=== PATIENT | female | born 1955 | race Caucasian/White ===

== ENCOUNTER 2017-12-22 17:00 | Inpatient (IN) | payer OTHER ==
[2017-12-22] MEDS: SOD CHLORIDE 0.9% 1,000 ML IV (17:30)
[2017-12-22] MEDS: ONDANSETRON 4 MG INJ IV ×2 (17:31→20:08)
[2017-12-22] MEDS: morphine 4 MG/ML VIAL IV ×2 (17:31→20:09)
[2017-12-22 17:37] LABS: ADD MAN DIFF? NO
[2017-12-22 17:38] LABS: BASOPHILS % 0.3 % (0.0-2.0); EOSINOPHILS # 0.1 10^3/ul (0.0-0.5); HEMATOCRIT 31.2 % (37.0-47.0); HEMOGLOBIN 10.7 g/dl (12.0-16.0); LYMPHOCYTES # 1.5 10^3/ul (0.8-2.9); LYMPHOCYTES % 25.5 % (15.0-51.0); MEAN CORPUSCULAR HGB CONC 34.3 g/dl (32.0-37.0); MEAN CORPUSCULAR VOLUME 90.4 fl (82.0-101.0); MEAN PLATELET VOLUME 10.8 fl (7.4-10.4); MONOCYTE # 0.4 10^3/ul (0.3-0.9); MONOCYTES % 6.6 % (0.0-11.0); NEUTROPHIL # 3.8 10^3/ul (1.6-7.5); NEUTROPHILS % 66.4 % (39.0-77.0); PLATELET COUNT 216 10^3/UL (140-415); RED BLOOD COUNT 3.45 10^6/ul (4.20-5.40); RED CELL DISTRIBUTION WIDTH 13.7 % (11.5-14.5)
[2017-12-22 17:38] LABS: WHITE BLOOD COUNT 5.7 10^3/ul (4.8-10.8)
[2017-12-22 17:46] LABS: ADD UMIC YES; UR ASCORBIC ACID NEGATIVE (NEGATIVE); UR BILIRUBIN (Dip) NEGATIVE (NEGATIVE); UR BLOOD (Dip) 2+ mg/dL (NEGATIVE); UR CLARITY CLEAR (CLEAR); UR COLOR YELLOW (YELLOW); UR GLUCOSE (Dip) NEGATIVE (NEGATIVE); UR KETONES (Dip) 1+ mg/dL (NEGATIVE); UR LEUKOCYTE ESTERASE (Dip) TRACE Leu/ul (NEGATIVE); UR NITRITE (Dip) NEGATIVE (NEGATIVE); UR RBC 4 /HPF (0-5); UR SPECIFIC GRAVITY (Dip) 1.009 (1.003-1.030); UR SQUAMOUS EPITHELIAL CELL FEW /HPF (FEW); UR TOTAL PROTEIN (Dip) NEGATIVE (NEGATIVE); UR UROBILINOGEN (Dip) NEGATIVE (NEGATIVE); UR WBC 4 /HPF (0-5)
[2017-12-22 17:55] LABS: ALANINE AMINOTRANSFERASE 407 IU/L (13-69); ALBUMIN 4.3 g/dl (3.3-4.9); ALBUMIN/GLOBULIN RATIO 1.34; ALKALINE PHOSPHATASE 304 IU/L (42-121); ANION GAP 15 (8-16); ASPARTATE AMINO TRANSFERASE 392 IU/L (15-46); BILIRUBIN,INDIRECT 0.5 mg/dl (0-1.1); BILIRUBIN,TOTAL 0.5 mg/dl (0.2-1.3); BLOOD UREA NITROGEN 11 mg/dl (7-20); CALCIUM 10.1 mg/dl (8.4-10.2); CARBON DIOXIDE 29 mmol/L (21-31); CHLORIDE 98 mmol/L (97-110); CREATININE 0.52 mg/dl (0.44-1.00); GLUCOSE 107 mg/dl (70-220); LIPASE 18 U/L (23-300); POTASSIUM 3.5 mmol/L (3.5-5.1); SODIUM 138 mmol/L (135-144); TOTAL PROTEIN 7.5 g/dl (6.1-8.1)
[2017-12-22] MEDS ORDERED: ACETAMINOPHEN 325 MG TAB PO ×2 (19:00→20:30)
[2017-12-22] MEDS: BARIUM SULFATE 0.1% 450 ML BTL (VOLUMEN) PO (20:25)
[2017-12-22] MEDS ORDERED: BISACODYL (EC) 5 MG TAB PO (20:30)
[2017-12-22] MEDS ORDERED: MAGNESIUM HYDROXIDE 30ML CUP PO (20:30)
[2017-12-22] MEDS ORDERED: IBUPROFEN 600 MG TAB PO (20:30)
[2017-12-22] MEDS ORDERED: ONDANSETRON 4 MG TAB PO (20:30)
[2017-12-22] MEDS ORDERED: BISACODYL 10 MG SUPP PR (20:30)
[2017-12-22] MEDS: HYDROCODONE/APAP (5/325) TAB PO (20:34)
[2017-12-22] MEDS: NACL 0.9% 3 ML SYG IV ×2 (23:14→23:30)
[2017-12-22] MEDS: morphine 2 MG INJ IV (23:27)
[2017-12-23] MEDS: morphine 2 MG INJ IV ×3 (02:27→17:00)
[2017-12-23 05:03] LABS: ADD MAN DIFF? NO
[2017-12-23 05:04] LABS: BASOPHILS % 0.2 % (0.0-2.0); EOSINOPHILS # 0.1 10^3/ul (0.0-0.5); EOSINOPHILS % 1.5 % (0.0-7.0); HEMATOCRIT 29.6 % (37.0-47.0); HEMOGLOBIN 9.9 g/dl (12.0-16.0); LYMPHOCYTES # 1.3 10^3/ul (0.8-2.9); LYMPHOCYTES % 27.6 % (15.0-51.0); MEAN CORPUSCULAR HEMOGLOBIN 30.6 pg (29.0-33.0); MEAN CORPUSCULAR HGB CONC 33.4 g/dl (32.0-37.0); MEAN CORPUSCULAR VOLUME 91.4 fl (82.0-101.0); MEAN PLATELET VOLUME 11.4 fl (7.4-10.4); MONOCYTE # 0.5 10^3/ul (0.3-0.9); MONOCYTES % 10.8 % (0.0-11.0); NEUTROPHIL # 2.7 10^3/ul (1.6-7.5); NEUTROPHILS % 59.7 % (39.0-77.0); PLATELET COUNT 185 10^3/UL (140-415); RED BLOOD COUNT 3.24 10^6/ul (4.20-5.40); RED CELL DISTRIBUTION WIDTH 13.8 % (11.5-14.5)
[2017-12-23 05:04] LABS: WHITE BLOOD COUNT 4.5 10^3/ul (4.8-10.8)
[2017-12-23 05:24] LABS: ALANINE AMINOTRANSFERASE 651 IU/L (13-69); ALBUMIN 3.5 g/dl (3.3-4.9); ALBUMIN/GLOBULIN RATIO 1.29; ALKALINE PHOSPHATASE 326 IU/L (42-121); ANION GAP 13 (8-16); BILIRUBIN,INDIRECT 0.2 mg/dl (0-1.1); BILIRUBIN,TOTAL 0.3 mg/dl (0.2-1.3); BLOOD UREA NITROGEN 8 mg/dl (7-20); CALCIUM 9.6 mg/dl (8.4-10.2); CARBON DIOXIDE 30 mmol/L (21-31); CHLORIDE 104 mmol/L (97-110); CREATININE 0.48 mg/dl (0.44-1.00); GLUCOSE 121 mg/dl (70-220); MAGNESIUM 2.1 mg/dl (1.7-2.5); PHOSPHORUS 3.6 mg/dl (2.5-4.9); POTASSIUM 3.6 mmol/L (3.5-5.1); SODIUM 143 mmol/L (135-144); TOTAL PROTEIN 6.2 g/dl (6.1-8.1)
[2017-12-23 05:31] LABS: ASPARTATE AMINO TRANSFERASE 893 IU/L (15-46)
[2017-12-23] MEDS ORDERED: morphine 2 MG INJ IV (06:30)
[2017-12-23] MEDS: IOHEXOL 300MG/ML 150 ML BTL (08:24)
[2017-12-23] MEDS: SOD CHLORIDE 0.9% 100 ML (08:24)
[2017-12-23] MEDS: ENOXAPARIN 40 MG/0.4 ML SYG SC (09:31)
[2017-12-23] MEDS: DOCUSATE SODIUM 100 MG CAP PO (09:33)
[2017-12-23] MEDS: METOCLOPRAMIDE 10 MG INJ IV (17:00)
[2017-12-24] MEDS: morphine 2 MG INJ IV ×5 (00:26→23:42)
[2017-12-24 06:21] LABS: ADD MAN DIFF? NO
[2017-12-24 06:34] LABS: WHITE BLOOD COUNT 4.7 10^3/ul (4.8-10.8)
[2017-12-24 06:34] LABS: BASOPHILS % 0.6 % (0.0-2.0); EOSINOPHILS # 0.1 10^3/ul (0.0-0.5); EOSINOPHILS % 1.3 % (0.0-7.0); HEMATOCRIT 30.9 % (37.0-47.0); HEMOGLOBIN 10.3 g/dl (12.0-16.0); LYMPHOCYTES # 1.2 10^3/ul (0.8-2.9); LYMPHOCYTES % 25.9 % (15.0-51.0); MEAN CORPUSCULAR HEMOGLOBIN 30.4 pg (29.0-33.0); MEAN CORPUSCULAR HGB CONC 33.3 g/dl (32.0-37.0); MEAN CORPUSCULAR VOLUME 91.2 fl (82.0-101.0); MEAN PLATELET VOLUME 12.1 fl (7.4-10.4); MONOCYTE # 0.5 10^3/ul (0.3-0.9); MONOCYTES % 10.3 % (0.0-11.0); NEUTROPHIL # 2.9 10^3/ul (1.6-7.5); NEUTROPHILS % 61.7 % (39.0-77.0); PLATELET COUNT 204 10^3/UL (140-415); RED BLOOD COUNT 3.39 10^6/ul (4.20-5.40); RED CELL DISTRIBUTION WIDTH 14.1 % (11.5-14.5)
[2017-12-24 06:36] LABS: ALANINE AMINOTRANSFERASE 644 IU/L (13-69); ALBUMIN 3.7 g/dl (3.3-4.9); ALBUMIN/GLOBULIN RATIO 1.32; ALKALINE PHOSPHATASE 402 IU/L (42-121); ANION GAP 19 (8-16); ASPARTATE AMINO TRANSFERASE 575 IU/L (15-46); BILIRUBIN,INDIRECT 0.5 mg/dl (0-1.1); BILIRUBIN,TOTAL 1.8 mg/dl (0.2-1.3); BLOOD UREA NITROGEN 8 mg/dl (7-20); CALCIUM 9.9 mg/dl (8.4-10.2); CARBON DIOXIDE 26 mmol/L (21-31); CHLORIDE 101 mmol/L (97-110); CREATININE 0.45 mg/dl (0.44-1.00); GLUCOSE 72 mg/dl (70-220); POTASSIUM 3.4 mmol/L (3.5-5.1); SODIUM 143 mmol/L (135-144); TOTAL PROTEIN 6.5 g/dl (6.1-8.1)
[2017-12-24] MEDS: METOCLOPRAMIDE 10 MG INJ IV ×2 (08:45→23:40)
[2017-12-24] MEDS: ENOXAPARIN 40 MG/0.4 ML SYG SC (08:47)
[2017-12-24] MEDS: BARIUM SULFATE 0.1% 450 ML BTL (VOLUMEN) PO ×2 (09:38→10:02)
[2017-12-24] MEDS: IOHEXOL 100 ML (10:00)
[2017-12-24] MEDS: SOD CHLORIDE 0.9% 100 ML (10:00)
[2017-12-25 05:14] LABS: ADD MAN DIFF? NO
[2017-12-25 05:20] LABS: WHITE BLOOD COUNT 5.4 10^3/ul (4.8-10.8)
[2017-12-25 05:20] LABS: BASOPHILS % 0.4 % (0.0-2.0); EOSINOPHILS # 0.1 10^3/ul (0.0-0.5); EOSINOPHILS % 1.3 % (0.0-7.0); HEMATOCRIT 31.5 % (37.0-47.0); HEMOGLOBIN 10.5 g/dl (12.0-16.0); LYMPHOCYTES # 1.5 10^3/ul (0.8-2.9); LYMPHOCYTES % 27.7 % (15.0-51.0); MEAN CORPUSCULAR HEMOGLOBIN 29.9 pg (29.0-33.0); MEAN CORPUSCULAR HGB CONC 33.3 g/dl (32.0-37.0); MEAN CORPUSCULAR VOLUME 89.7 fl (82.0-101.0); MEAN PLATELET VOLUME 11.3 fl (7.4-10.4); MONOCYTE # 0.6 10^3/ul (0.3-0.9); MONOCYTES % 10.5 % (0.0-11.0); NEUTROPHIL # 3.2 10^3/ul (1.6-7.5); NEUTROPHILS % 59.7 % (39.0-77.0); PLATELET COUNT 223 10^3/UL (140-415); RED BLOOD COUNT 3.51 10^6/ul (4.20-5.40); RED CELL DISTRIBUTION WIDTH 14.2 % (11.5-14.5)
[2017-12-25 05:24] LABS: PLATELET COUNT 225 10^3/UL (140-415)
[2017-12-25 05:34] LABS: INR 1.06; PROTIME 13.9 Sec (11.9-14.9); PT RATIO 1.1
[2017-12-25 05:38] LABS: ANION GAP 10 (8-16); BLOOD UREA NITROGEN 6 mg/dl (7-20); CALCIUM 9.9 mg/dl (8.4-10.2); CARBON DIOXIDE 29 mmol/L (21-31); CHLORIDE 103 mmol/L (97-110); CREATININE 0.43 mg/dl (0.44-1.00); GLUCOSE 102 mg/dl (70-220); PHOSPHORUS 3.1 mg/dl (2.5-4.9); POTASSIUM 3.4 mmol/L (3.5-5.1); SODIUM 139 mmol/L (135-144)
[2017-12-25 05:41] LABS: ALANINE AMINOTRANSFERASE 555 IU/L (13-69); ALBUMIN 3.7 g/dl (3.3-4.9); ALKALINE PHOSPHATASE 420 IU/L (42-121); ASPARTATE AMINO TRANSFERASE 401 IU/L (15-46); BILIRUBIN,TOTAL 2.1 mg/dl (0.2-1.3); TOTAL PROTEIN 6.5 g/dl (6.1-8.1)
[2017-12-25 05:44] LABS: PARTIAL THROMBOPLASTIN TIME 25.8 Sec (25.0-35.0)
[2017-12-25 05:48] LABS: THROMBIN TIME 14.7 SEC (13.8-19.1)
[2017-12-25] MEDS: morphine 2 MG INJ IV ×4 (07:30→20:40)
[2017-12-25] MEDS: ENOXAPARIN 40 MG/0.4 ML SYG SC (07:44)
[2017-12-25] MEDS: PROPOFOL 20 ML (12:45)
[2017-12-25 12:59] LABS: IRON 125 ug/dl (35-150)
[2017-12-25] MEDS ORDERED: ONDANSETRON 4 MG INJ IV (13:00)
[2017-12-25] MEDS ORDERED: hydrALAzine 20 MG INJ IV (13:00)
[2017-12-25] MEDS ORDERED: LABETALOL HCL 20MG INJ IV (13:00)
[2017-12-25] MEDS ORDERED: FENTAnyl 50 MCG/ML VIAL IV ×3 (13:00)
[2017-12-25] MEDS ORDERED: EPHEDrine SULFATE 50 MG/5 ML SYG IV (13:00)
[2017-12-25] MEDS ORDERED: MIDAZOLAM 1 MG/ML 2 ML INJ IV (13:00)
[2017-12-25] MEDS ORDERED: METOCLOPRAMIDE 10 MG INJ IV (13:00)
[2017-12-25] MEDS ORDERED: MEPERIDINE 25 MG INJ IV (13:00)
[2017-12-25] MEDS ORDERED: DIPHENHYDRAMINE 50 MG INJ IV (13:00)
[2017-12-25 13:21] LABS: % IRON SATURATION 36 % SAT (22-52); TOTAL IRON BINDING CAPACITY 345 ug/dl (241-421)
[2017-12-25] MEDS: METOCLOPRAMIDE 10 MG INJ IV (20:40)
[2017-12-26] MEDS: morphine 2 MG INJ IV ×6 (02:59→23:47)
[2017-12-26] MEDS: ENOXAPARIN 40 MG/0.4 ML SYG SC (09:01)
[2017-12-26 15:09] LABS: CANCER ANTIGEN 19-9 3.2 U/ml (0.0-37.0)
[2017-12-26] MEDS: METOCLOPRAMIDE 10 MG INJ IV (23:51)
[2017-12-27] MEDS: morphine 2 MG INJ IV ×4 (08:10→22:04)
[2017-12-27] MEDS: ONDANSETRON 4 MG INJ IV (17:08)
[2017-12-27] MEDS: METOCLOPRAMIDE 10 MG INJ IV (22:04)
[2017-12-27] MEDS: SOD CHLORIDE 0.9% 1,000 ML IV (23:46)
[2017-12-28] MEDS: morphine 2 MG INJ IV ×5 (02:19→23:32)
[2017-12-28 05:49] LABS: ADD MAN DIFF? NO
[2017-12-28 06:14] LABS: BASOPHILS % 0.6 % (0.0-2.0); EOSINOPHILS # 0.1 10^3/ul (0.0-0.5); EOSINOPHILS % 2.2 % (0.0-7.0); HEMATOCRIT 30.9 % (37.0-47.0); HEMOGLOBIN 10.7 g/dl (12.0-16.0); LYMPHOCYTES # 1.2 10^3/ul (0.8-2.9); LYMPHOCYTES % 24.1 % (15.0-51.0); MEAN CORPUSCULAR HGB CONC 34.6 g/dl (32.0-37.0); MEAN CORPUSCULAR VOLUME 89.6 fl (82.0-101.0); MEAN PLATELET VOLUME 12.2 fl (7.4-10.4); MONOCYTE # 0.6 10^3/ul (0.3-0.9); NEUTROPHIL # 3.1 10^3/ul (1.6-7.5); NEUTROPHILS % 61.9 % (39.0-77.0); PLATELET COUNT 236 10^3/UL (140-415); RED BLOOD COUNT 3.45 10^6/ul (4.20-5.40); RED CELL DISTRIBUTION WIDTH 14.5 % (11.5-14.5)
[2017-12-28 06:19] LABS: INR 0.97
[2017-12-28] MEDS: SOD CHLORIDE 0.9% 1,000 ML IV (13:50)
[2017-12-28] MEDS: FENTAnyl 50 MCG/ML VIAL (16:05)
[2017-12-28] MEDS: DIPHENHYDRAMINE 50 MG INJ (16:06)
[2017-12-28] MEDS: IOHEXOL 300MG/ML 150 ML BTL (16:21)
[2017-12-28] MEDS: SOD CHLORIDE 0.9% 100 ML (16:21)
[2017-12-28] MEDS: LIDOCAINE 1% (MDV) 10 ML INJ (17:07)
[2017-12-28] MEDS: ONDANSETRON 4 MG INJ IV (19:55)
[2017-12-29] MEDS: SOD CHLORIDE 0.9% 1,000 ML IV ×2 (01:40→15:00)
[2017-12-29 05:04] LABS: ADD MAN DIFF? NO
[2017-12-29 05:07] LABS: BASOPHILS % 0.4 % (0.0-2.0); EOSINOPHILS # 0.1 10^3/ul (0.0-0.5); EOSINOPHILS % 1.5 % (0.0-7.0); HEMATOCRIT 30.5 % (37.0-47.0); HEMOGLOBIN 10.3 g/dl (12.0-16.0); LYMPHOCYTES # 0.9 10^3/ul (0.8-2.9); LYMPHOCYTES % 16.3 % (15.0-51.0); MEAN CORPUSCULAR HEMOGLOBIN 30.3 pg (29.0-33.0); MEAN CORPUSCULAR HGB CONC 33.8 g/dl (32.0-37.0); MEAN CORPUSCULAR VOLUME 89.7 fl (82.0-101.0); MONOCYTE # 0.4 10^3/ul (0.3-0.9); MONOCYTES % 8.3 % (0.0-11.0); NEUTROPHIL # 3.8 10^3/ul (1.6-7.5); NEUTROPHILS % 72.9 % (39.0-77.0); PLATELET COUNT 235 10^3/UL (140-415); RED CELL DISTRIBUTION WIDTH 14.3 % (11.5-14.5)
[2017-12-29 05:07] LABS: WHITE BLOOD COUNT 5.2 10^3/ul (4.8-10.8)
[2017-12-29 05:23] LABS: INR 0.99; PROTIME 13.2 Sec (11.9-14.9)
[2017-12-29 05:38] LABS: ALANINE AMINOTRANSFERASE 403 IU/L (13-69); ALBUMIN 3.5 g/dl (3.3-4.9); ALBUMIN/GLOBULIN RATIO 1.12; ALKALINE PHOSPHATASE 477 IU/L (42-121); ANION GAP 15 (8-16); ASPARTATE AMINO TRANSFERASE 261 IU/L (15-46); BILIRUBIN,INDIRECT 0.9 mg/dl (0-1.1); BILIRUBIN,TOTAL 3.8 mg/dl (0.2-1.3); BLOOD UREA NITROGEN 10 mg/dl (7-20); CALCIUM 9.7 mg/dl (8.4-10.2); CARBON DIOXIDE 28 mmol/L (21-31); CHLORIDE 100 mmol/L (97-110); CREATININE 0.45 mg/dl (0.44-1.00); GLUCOSE 77 mg/dl (70-220); MAGNESIUM 1.8 mg/dl (1.7-2.5); PHOSPHORUS 3.2 mg/dl (2.5-4.9); SODIUM 140 mmol/L (135-144); TOTAL PROTEIN 6.6 g/dl (6.1-8.1)
[2017-12-29] MEDS: morphine 2 MG INJ IV ×4 (08:29→22:07)
[2017-12-29] MEDS: POLYETHYLENE GLYCOL 17 GM PACKET PO (21:04)
[2017-12-30] MEDS: morphine 2 MG INJ IV ×4 (02:36→21:36)
[2017-12-30] MEDS: POLYETHYLENE GLYCOL 17 GM PACKET PO ×2 (08:49→21:58)
[2017-12-30 12:17] LABS: ALANINE AMINOTRANSFERASE 380 IU/L (13-69); ALBUMIN 3.4 g/dl (3.3-4.9); ALBUMIN/GLOBULIN RATIO 1.09; ALKALINE PHOSPHATASE 479 IU/L (42-121); ANION GAP 13 (8-16); ASPARTATE AMINO TRANSFERASE 270 IU/L (15-46); BILIRUBIN,INDIRECT 1.1 mg/dl (0-1.1); BILIRUBIN,TOTAL 3.8 mg/dl (0.2-1.3); BLOOD UREA NITROGEN 13 mg/dl (7-20); CALCIUM 9.8 mg/dl (8.4-10.2); CARBON DIOXIDE 31 mmol/L (21-31); CHLORIDE 98 mmol/L (97-110); GLUCOSE 110 mg/dl (70-220); SODIUM 139 mmol/L (135-144); TOTAL PROTEIN 6.5 g/dl (6.1-8.1)
[2017-12-30] MEDS: POTASSIUM CHLORIDE (SR) 20 MEQ TAB PO ×2 (12:41→21:58)
[2017-12-30] MEDS: MAGNESIUM SULFATE 1 GM/D5W 100 ML IVPB (13:37)
[2017-12-30] MEDS: ONDANSETRON 4 MG INJ IV (21:33)
[2017-12-31] MEDS: DOCUSATE SODIUM 100 MG CAP PO (01:23)
[2017-12-31] MEDS: morphine 2 MG INJ IV ×4 (01:23→20:21)
[2017-12-31 05:10] LABS: ADD MAN DIFF? NO
[2017-12-31 05:15] LABS: BASOPHILS % 0.4 % (0.0-2.0); EOSINOPHILS # 0.1 10^3/ul (0.0-0.5); EOSINOPHILS % 2.4 % (0.0-7.0); HEMATOCRIT 29.5 % (37.0-47.0); HEMOGLOBIN 10.3 g/dl (12.0-16.0); LYMPHOCYTES # 1.1 10^3/ul (0.8-2.9); LYMPHOCYTES % 23.5 % (15.0-51.0); MEAN CORPUSCULAR HEMOGLOBIN 31.4 pg (29.0-33.0); MEAN CORPUSCULAR HGB CONC 34.9 g/dl (32.0-37.0); MEAN CORPUSCULAR VOLUME 89.9 fl (82.0-101.0); MEAN PLATELET VOLUME 10.9 fl (7.4-10.4); MONOCYTE # 0.4 10^3/ul (0.3-0.9); MONOCYTES % 9.7 % (0.0-11.0); NEUTROPHIL # 2.9 10^3/ul (1.6-7.5); NEUTROPHILS % 63.6 % (39.0-77.0); PLATELET COUNT 251 10^3/UL (140-415); RED BLOOD COUNT 3.28 10^6/ul (4.20-5.40)
[2017-12-31 05:15] LABS: WHITE BLOOD COUNT 4.6 10^3/ul (4.8-10.8)
[2017-12-31 05:35] LABS: ALANINE AMINOTRANSFERASE 346 IU/L (13-69); ALBUMIN 3.1 g/dl (3.3-4.9); ALKALINE PHOSPHATASE 450 IU/L (42-121); ANION GAP 13 (8-16); ASPARTATE AMINO TRANSFERASE 243 IU/L (15-46); BLOOD UREA NITROGEN 10 mg/dl (7-20); CALCIUM 9.6 mg/dl (8.4-10.2); CARBON DIOXIDE 30 mmol/L (21-31); CHLORIDE 101 mmol/L (97-110); CREATININE 0.49 mg/dl (0.44-1.00); GLUCOSE 105 mg/dl (70-220); SODIUM 140 mmol/L (135-144); TOTAL PROTEIN 5.9 g/dl (6.1-8.1)
[2017-12-31 05:39] LABS: MAGNESIUM 2.3 mg/dl (1.7-2.5)
[2017-12-31] MEDS: POLYETHYLENE GLYCOL 17 GM PACKET PO ×2 (09:00→20:21)
[2017-12-31] MEDS: POTASSIUM CHLORIDE (SR) 20 MEQ TAB PO ×2 (09:49→20:21)
[2017-12-31] MEDS: ONDANSETRON 4 MG INJ IV (16:36)
[2018-01-01] MEDS: morphine 2 MG INJ IV ×3 (00:15→13:14)
[2018-01-01] MEDS: POTASSIUM CHLORIDE (SR) 20 MEQ TAB PO (08:16)
[2018-01-01] MEDS: POLYETHYLENE GLYCOL 17 GM PACKET PO ×2 (09:13→20:01)
[2018-01-01] MEDS ORDERED: oxyCODONE (CR) 15 MG TAB [oxyCONTIN] PO (14:30)
[2018-01-01] MEDS: IBUPROFEN 600 MG TAB PO ×2 (15:00→22:00)
[2018-01-01] MEDS: HYDROCODONE/APAP (5/325) TAB PO (20:01)
[2018-01-02] MEDS: morphine 2 MG INJ IV ×4 (01:07→18:38)
[2018-01-02] MEDS: IBUPROFEN 600 MG TAB PO ×3 (05:10→22:00)
[2018-01-02 05:13] LABS: ADD MAN DIFF? NO
[2018-01-02 05:19] LABS: BASOPHILS % 0.5 % (0.0-2.0); EOSINOPHILS # 0.1 10^3/ul (0.0-0.5); EOSINOPHILS % 2.7 % (0.0-7.0); HEMATOCRIT 29.4 % (37.0-47.0); HEMOGLOBIN 10.1 g/dl (12.0-16.0); LYMPHOCYTES # 0.9 10^3/ul (0.8-2.9); LYMPHOCYTES % 21.5 % (15.0-51.0); MEAN CORPUSCULAR HEMOGLOBIN 30.9 pg (29.0-33.0); MEAN CORPUSCULAR HGB CONC 34.4 g/dl (32.0-37.0); MEAN CORPUSCULAR VOLUME 89.9 fl (82.0-101.0); MEAN PLATELET VOLUME 11.6 fl (7.4-10.4); MONOCYTE # 0.5 10^3/ul (0.3-0.9); NEUTROPHIL # 2.8 10^3/ul (1.6-7.5); NEUTROPHILS % 63.8 % (39.0-77.0); PLATELET COUNT 272 10^3/UL (140-415); RED BLOOD COUNT 3.27 10^6/ul (4.20-5.40); RED CELL DISTRIBUTION WIDTH 15.8 % (11.5-14.5)
[2018-01-02 05:19] LABS: WHITE BLOOD COUNT 4.4 10^3/ul (4.8-10.8)
[2018-01-02 05:33] LABS: ALANINE AMINOTRANSFERASE 250 IU/L (13-69); ALBUMIN 3.2 g/dl (3.3-4.9); ALBUMIN/GLOBULIN RATIO 1.06; ALKALINE PHOSPHATASE 426 IU/L (42-121); ANION GAP 10 (8-16); ASPARTATE AMINO TRANSFERASE 125 IU/L (15-46); BILIRUBIN,INDIRECT 1.2 mg/dl (0-1.1); BILIRUBIN,TOTAL 4.4 mg/dl (0.2-1.3); BLOOD UREA NITROGEN 11 mg/dl (7-20); CARBON DIOXIDE 29 mmol/L (21-31); CHLORIDE 105 mmol/L (97-110); CREATININE 0.52 mg/dl (0.44-1.00); GLUCOSE 102 mg/dl (70-220); POTASSIUM 4.2 mmol/L (3.5-5.1); SODIUM 140 mmol/L (135-144); TOTAL PROTEIN 6.2 g/dl (6.1-8.1)
[2018-01-02 05:34] LABS: INR 1.03; PROTIME 13.6 Sec (11.9-14.9); PT RATIO 1.1
[2018-01-02] MEDS: FENTAnyl 50 MCG/ML VIAL (14:45)
[2018-01-02] MEDS: SOD CHLORIDE 0.9% 500 ML (14:55)
[2018-01-02] MEDS: LIDOCAINE 1% (MDV) 10 ML INJ (15:03)
[2018-01-02] MEDS: DIPHENHYDRAMINE 50 MG INJ (15:10)
[2018-01-02] MEDS: IOHEXOL 300MG/ML 150 ML BTL (15:15)
[2018-01-03] MEDS: HYDROCODONE/APAP (5/325) TAB PO ×2 (00:10→21:22)
[2018-01-03 05:01] LABS: ADD MAN DIFF? NO
[2018-01-03 05:06] LABS: WHITE BLOOD COUNT 7.5 10^3/ul (4.8-10.8)
[2018-01-03 05:06] LABS: BASOPHILS % 0.3 % (0.0-2.0); EOSINOPHILS % 0.3 % (0.0-7.0); HEMATOCRIT 30.5 % (37.0-47.0); HEMOGLOBIN 10.5 g/dl (12.0-16.0); LYMPHOCYTES # 0.9 10^3/ul (0.8-2.9); LYMPHOCYTES % 11.3 % (15.0-51.0); MEAN CORPUSCULAR HEMOGLOBIN 31.1 pg (29.0-33.0); MEAN CORPUSCULAR HGB CONC 34.4 g/dl (32.0-37.0); MEAN CORPUSCULAR VOLUME 90.2 fl (82.0-101.0); MEAN PLATELET VOLUME 11.3 fl (7.4-10.4); MONOCYTE # 0.5 10^3/ul (0.3-0.9); MONOCYTES % 6.1 % (0.0-11.0); NEUTROPHIL # 6.1 10^3/ul (1.6-7.5); NEUTROPHILS % 81.5 % (39.0-77.0); PLATELET COUNT 292 10^3/UL (140-415); RED BLOOD COUNT 3.38 10^6/ul (4.20-5.40); RED CELL DISTRIBUTION WIDTH 16.3 % (11.5-14.5)
[2018-01-03 05:22] LABS: ALANINE AMINOTRANSFERASE 217 IU/L (13-69); ALBUMIN 3.6 g/dl (3.3-4.9); ALBUMIN/GLOBULIN RATIO 1.05; ALKALINE PHOSPHATASE 431 IU/L (42-121); ANION GAP 19 (8-16); ASPARTATE AMINO TRANSFERASE 118 IU/L (15-46); BILIRUBIN,INDIRECT 1.3 mg/dl (0-1.1); BILIRUBIN,TOTAL 2.2 mg/dl (0.2-1.3); BLOOD UREA NITROGEN 23 mg/dl (7-20); CALCIUM 10.1 mg/dl (8.4-10.2); CARBON DIOXIDE 23 mmol/L (21-31); CHLORIDE 100 mmol/L (97-110); CREATININE 0.72 mg/dl (0.44-1.00); GLUCOSE 87 mg/dl (70-220); POTASSIUM 4.5 mmol/L (3.5-5.1); SODIUM 137 mmol/L (135-144)
[2018-01-03] MEDS: IBUPROFEN 600 MG TAB PO ×3 (06:32→22:00)
[2018-01-03] MEDS: ONDANSETRON 4 MG INJ IV (14:20)
[2018-01-04] MEDS: IBUPROFEN 600 MG TAB PO ×4 (06:00→21:47)
[2018-01-04] MEDS: morphine 2 MG INJ IV ×2 (06:25→20:01)
[2018-01-04] MEDS: ONDANSETRON 4 MG INJ IV (20:01)
[2018-01-04] MEDS: LOPERAMIDE 2 MG CAP PO (21:38)
[2018-01-05] MEDS: morphine 2 MG INJ IV ×2 (01:52→22:17)
[2018-01-05 04:53] LABS: ADD MAN DIFF? NO
[2018-01-05 04:57] LABS: WHITE BLOOD COUNT 6.1 10^3/ul (4.8-10.8)
[2018-01-05 04:57] LABS: BASOPHILS % 0.5 % (0.0-2.0); EOSINOPHILS # 0.1 10^3/ul (0.0-0.5); EOSINOPHILS % 1.3 % (0.0-7.0); HEMATOCRIT 32.1 % (37.0-47.0); HEMOGLOBIN 10.9 g/dl (12.0-16.0); LYMPHOCYTES # 0.9 10^3/ul (0.8-2.9); LYMPHOCYTES % 13.9 % (15.0-51.0); MEAN CORPUSCULAR HEMOGLOBIN 31.5 pg (29.0-33.0); MEAN CORPUSCULAR VOLUME 92.8 fl (82.0-101.0); MONOCYTE # 0.6 10^3/ul (0.3-0.9); MONOCYTES % 9.3 % (0.0-11.0); NEUTROPHIL # 4.6 10^3/ul (1.6-7.5); NEUTROPHILS % 74.7 % (39.0-77.0); PLATELET COUNT 286 10^3/UL (140-415); RED BLOOD COUNT 3.46 10^6/ul (4.20-5.40); RED CELL DISTRIBUTION WIDTH 15.9 % (11.5-14.5)
[2018-01-05 05:11] LABS: ALANINE AMINOTRANSFERASE 153 IU/L (13-69); ALBUMIN 3.5 g/dl (3.3-4.9); ALBUMIN/GLOBULIN RATIO 1.06; ALKALINE PHOSPHATASE 375 IU/L (42-121); ANION GAP 9 (8-16); ASPARTATE AMINO TRANSFERASE 68 IU/L (15-46); BILIRUBIN,TOTAL 1.4 mg/dl (0.2-1.3); BLOOD UREA NITROGEN 24 mg/dl (7-20); CALCIUM 10.3 mg/dl (8.4-10.2); CARBON DIOXIDE 32 mmol/L (21-31); CHLORIDE 103 mmol/L (97-110); CREATININE 0.65 mg/dl (0.44-1.00); GLUCOSE 116 mg/dl (70-220); POTASSIUM 4.1 mmol/L (3.5-5.1); SODIUM 140 mmol/L (135-144); TOTAL PROTEIN 6.8 g/dl (6.1-8.1)
[2018-01-05 05:16] LABS: MAGNESIUM 2.4 mg/dl (1.7-2.5)
[2018-01-05 05:16] LABS: PHOSPHORUS 3.7 mg/dl (2.5-4.9)
[2018-01-05] MEDS: IBUPROFEN 600 MG TAB PO ×3 (06:00→22:01)
[2018-01-06 05:24] LABS: ADD MAN DIFF? NO; BASOPHILS % 0.5 % (0.0-2.0); EOSINOPHILS # 0.2 10^3/ul (0.0-0.5); HEMATOCRIT 33.7 % (37.0-47.0); HEMOGLOBIN 11.1 g/dl (12.0-16.0); LYMPHOCYTES % 15.6 % (15.0-51.0); MEAN CORPUSCULAR HEMOGLOBIN 31.3 pg (29.0-33.0); MEAN CORPUSCULAR HGB CONC 32.9 g/dl (32.0-37.0); MEAN CORPUSCULAR VOLUME 94.9 fl (82.0-101.0); MEAN PLATELET VOLUME 11.8 fl (7.4-10.4); MONOCYTE # 0.6 10^3/ul (0.3-0.9); MONOCYTES % 9.8 % (0.0-11.0); NEUTROPHIL # 4.5 10^3/ul (1.6-7.5); NEUTROPHILS % 70.6 % (39.0-77.0); PLATELET COUNT 300 10^3/UL (140-415); RED BLOOD COUNT 3.55 10^6/ul (4.20-5.40); RED CELL DISTRIBUTION WIDTH 15.4 % (11.5-14.5)
[2018-01-06 05:24] LABS: WHITE BLOOD COUNT 6.4 10^3/ul (4.8-10.8)
[2018-01-06] MEDS: IBUPROFEN 600 MG TAB PO ×2 (05:42→14:00)
[2018-01-06 05:46] LABS: ALANINE AMINOTRANSFERASE 133 IU/L (13-69); ALBUMIN 3.8 g/dl (3.3-4.9); ALBUMIN/GLOBULIN RATIO 1.05; ALKALINE PHOSPHATASE 375 IU/L (42-121); ANION GAP 14 (8-16); ASPARTATE AMINO TRANSFERASE 81 IU/L (15-46); BILIRUBIN,INDIRECT 0.8 mg/dl (0-1.1); BILIRUBIN,TOTAL 1.1 mg/dl (0.2-1.3); BLOOD UREA NITROGEN 27 mg/dl (7-20); CALCIUM 10.2 mg/dl (8.4-10.2); CARBON DIOXIDE 28 mmol/L (21-31); CHLORIDE 99 mmol/L (97-110); GLUCOSE 123 mg/dl (70-220); MAGNESIUM 2.4 mg/dl (1.7-2.5); SODIUM 137 mmol/L (135-144); TOTAL PROTEIN 7.4 g/dl (6.1-8.1)
[2018-01-06] MEDS: HYDROCODONE/APAP (5/325) TAB PO (15:24)
== END 2018-01-06 16:30 | disposition home health service (06) | DRG 374 ==
LOC: E/R 17:00 → MS1 18:56
PROC: 0WBH3ZX Excision of Retroperitoneum, Percutaneous Approach, Diagnostic (ICD-10-PCS; principal; 2017-12-25 11:18)
PROC: 0F9730Z Drainage of Common Hepatic Duct with Drainage Device, Percutaneous Approach (ICD-10-PCS; 2017-12-25 11:18)
PROC: 0DB98ZX Excision of Duodenum, Via Natural or Artificial Opening Endoscopic, Diagnostic (ICD-10-PCS; 2017-12-25 11:18)
PROC: 0DB68ZX Excision of Stomach, Via Natural or Artificial Opening Endoscopic, Diagnostic (ICD-10-PCS; 2017-12-25 11:18)
DX: C78.89 Secondary malignant neoplasm of other digestive organs (principal); K83.1 Obstruction of bile duct; K86.3 Pseudocyst of pancreas; E44.0 Moderate protein-calorie malnutrition; Z68.1 Body mass index [BMI] 19.9 or less, adult; K31.5 Obstruction of duodenum; D64.9 Anemia, unspecified; K59.00 Constipation, unspecified; Z85.09 Personal history of malignant neoplasm of other digestive organs
CPT/HCPCS: 36415; 71260; 74176; 74178; 75982; 77012; 80048; 80053; 80076; 81001; 82607; 82728; 83540; 83690; 83735; 84100; 85025; 85049; 85610; 85670; 85730; 86301; 88305; 88307; 88312; 88313; 88341; 88342; 96374; 96375; 96376; 99285-25

== ENCOUNTER 2018-01-14 13:19 | Inpatient (IN) | payer OTHER ==
[2018-01-14] MEDS: SOD CHLORIDE 0.9% IV (14:29)
[2018-01-14 14:34] LABS: ADD MAN DIFF? NO
[2018-01-14 14:49] LABS: LACTIC ACID 1.3 mmol/L (0.5-2.0)
[2018-01-14 14:55] LABS: INR 1.02; PROTIME 13.5 Sec (11.9-14.9); PT RATIO 1.1
[2018-01-14 14:56] LABS: PARTIAL THROMBOPLASTIN TIME 29.2 Sec (25.0-35.0)
[2018-01-14 14:57] LABS: ALANINE AMINOTRANSFERASE 182 IU/L (13-69); ALBUMIN/GLOBULIN RATIO 1.19; ALKALINE PHOSPHATASE 286 IU/L (42-121); ANION GAP 24 (8-16); ASPARTATE AMINO TRANSFERASE 110 IU/L (15-46); BILIRUBIN,INDIRECT 0.6 mg/dl (0-1.1); BILIRUBIN,TOTAL 0.6 mg/dl (0.2-1.3); BLOOD UREA NITROGEN 99 mg/dl (7-20); CALCIUM 10.5 mg/dl (8.4-10.2); CARBON DIOXIDE 22 mmol/L (21-31); CHLORIDE 87 mmol/L (97-110); CREATININE 3.24 mg/dl (0.44-1.00); GLUCOSE 124 mg/dl (70-220); POTASSIUM 4.8 mmol/L (3.5-5.1); SODIUM 128 mmol/L (135-144); TOTAL PROTEIN 9.2 g/dl (6.1-8.1)
[2018-01-14] MEDS: FENTAnyl 50 MCG/ML VIAL IV (14:59)
[2018-01-14 15:01] LABS: WHITE BLOOD COUNT 7.7 10^3/ul (4.8-10.8)
[2018-01-14 15:01] LABS: BASOPHILS % 0.4 % (0.0-2.0); EOSINOPHILS % 0.3 % (0.0-7.0); HEMATOCRIT 40.1 % (37.0-47.0); HEMOGLOBIN 14.3 g/dl (12.0-16.0); LYMPHOCYTES # 1.1 10^3/ul (0.8-2.9); LYMPHOCYTES % 14.1 % (15.0-51.0); MEAN CORPUSCULAR HEMOGLOBIN 31.4 pg (29.0-33.0); MEAN CORPUSCULAR HGB CONC 35.7 g/dl (32.0-37.0); MEAN CORPUSCULAR VOLUME 87.9 fl (82.0-101.0); MEAN PLATELET VOLUME 12.3 fl (7.4-10.4); MONOCYTE # 0.4 10^3/ul (0.3-0.9); MONOCYTES % 5.1 % (0.0-11.0); NEUTROPHIL # 6.1 10^3/ul (1.6-7.5); NEUTROPHILS % 79.7 % (39.0-77.0); PLATELET COUNT 383 10^3/UL (140-415); RED BLOOD COUNT 4.56 10^6/ul (4.20-5.40); RED CELL DISTRIBUTION WIDTH 13.8 % (11.5-14.5)
[2018-01-14 15:17] LABS: TROPONIN-I < 0.012 ng/ml (0.00-0.12)
[2018-01-14 17:06] LABS: URINE PH (Dip) POC 5.5 (5.0-8.5)
[2018-01-14 17:06] LABS: URINE BLOOD (Dip) POC 3+ (NEGATIVE); URINE GLUCOSE (Dip) POC Negative (NEGATIVE); URINE KETONES (Dip) POC Trace (NEGATIVE); URINE LEUKOCYTE EST (Dip) POC Negative (NEGATIVE); URINE NITRITE (Dip) POC Negative (NEGATIVE); URINE TOTAL PROTEIN POC Trace (NEGATIVE)
[2018-01-14] MEDS ORDERED: SOD CHLORIDE 0.9% 1,000 ML IV (17:28)
[2018-01-14] MEDS ORDERED: FENTAnyl PATCH 12 MCG/HR TRANSDERM (17:30)
[2018-01-14] MEDS ORDERED: ACETAMINOPHEN 325 MG TAB PO (17:30)
[2018-01-14] MEDS ORDERED: LORAZEPAM 2 MG INJ IV (17:30)
[2018-01-14] MEDS ORDERED: NACL 0.9% 3 ML SYG IV (17:30)
[2018-01-14 17:57] LABS: ADD UMIC YES; UR ASCORBIC ACID 20 mg/dL (NEGATIVE); UR BILIRUBIN (Dip) NEGATIVE (NEGATIVE); UR BLOOD (Dip) 2+ mg/dL (NEGATIVE); UR CLARITY CLOUDY (CLEAR); UR COLOR YELLOW (YELLOW); UR GLUCOSE (Dip) NEGATIVE (NEGATIVE); UR KETONES (Dip) TRACE mg/dL (NEGATIVE); UR LEUKOCYTE ESTERASE (Dip) NEGATIVE Leu/ul (NEGATIVE); UR NITRITE (Dip) NEGATIVE (NEGATIVE); UR RBC 0 /HPF (0-5); UR SPECIFIC GRAVITY (Dip) 1.012 (1.003-1.030); UR TOTAL PROTEIN (Dip) NEGATIVE (NEGATIVE); UR UROBILINOGEN (Dip) NEGATIVE (NEGATIVE); UR WBC 0 /HPF (0-5)
[2018-01-14] MEDS: POLYETHYLENE GLYCOL 17 GM PACKET PO (18:00)
[2018-01-14 18:15] LABS: SODIUM,URINE RANDOM < 5 mmol/L (30-90)
[2018-01-14 18:15] LABS: POTASSIUM,URINE RANDOM 37.9 mmol/L (25-125)
[2018-01-14] MEDS: ONDANSETRON 4 MG INJ IV (19:56)
[2018-01-14] MEDS: DEXTROSE 5%-0.45% NACL 1,000 ML IV (19:58)
[2018-01-14] MEDS: ACETAMINOPHEN 325 MG TAB PO (19:59)
[2018-01-14] MEDS: FAMOTIDINE 20 MG TAB PO (19:59)
[2018-01-14] MEDS: traMADol 50 MG TAB PO (19:59)
[2018-01-14 20:41] LABS: OSMOLALITY,URINE 384 mOsm/kg (250-1200)
[2018-01-14] MEDS: SENNA/DOCUSATE NA (8.6MG/50MG) TAB PO (21:00)
[2018-01-14] MEDS ORDERED: HYDROmorphONE 0.5 MG/0.5 ML SYG IV (21:30)
[2018-01-14] MEDS: SOD CHLORIDE 0.9% 500 ML IV (22:29)
[2018-01-15] MEDS: PANTOPRAZOLE (EC) 40 MG TAB PO (06:53)
[2018-01-15] MEDS ORDERED: METOCLOPRAMIDE 10 MG INJ (07:00)
[2018-01-15] MEDS ORDERED: DEXAMETHASONE 4 MG/ML 1 ML INJ (07:00)
[2018-01-15 07:08] LABS: ADD MAN DIFF? NO
[2018-01-15 07:13] LABS: BASOPHILS % 0.4 % (0.0-2.0); EOSINOPHILS # 0.1 10^3/ul (0.0-0.5); HEMATOCRIT 31.4 % (37.0-47.0); HEMOGLOBIN 10.8 g/dl (12.0-16.0); LYMPHOCYTES # 1.5 10^3/ul (0.8-2.9); LYMPHOCYTES % 22.4 % (15.0-51.0); MEAN CORPUSCULAR HEMOGLOBIN 30.9 pg (29.0-33.0); MEAN CORPUSCULAR HGB CONC 34.4 g/dl (32.0-37.0); MEAN CORPUSCULAR VOLUME 89.7 fl (82.0-101.0); MEAN PLATELET VOLUME 11.8 fl (7.4-10.4); MONOCYTE # 0.7 10^3/ul (0.3-0.9); MONOCYTES % 9.8 % (0.0-11.0); NEUTROPHIL # 4.5 10^3/ul (1.6-7.5); PLATELET COUNT 276 10^3/UL (140-415); RED CELL DISTRIBUTION WIDTH 14.1 % (11.5-14.5)
[2018-01-15 07:13] LABS: WHITE BLOOD COUNT 6.9 10^3/ul (4.8-10.8)
[2018-01-15 07:41] LABS: ALANINE AMINOTRANSFERASE 138 IU/L (13-69); ALBUMIN 3.5 g/dl (3.3-4.9); ALBUMIN/GLOBULIN RATIO 1.09; ALKALINE PHOSPHATASE 193 IU/L (42-121); ANION GAP 15 (8-16); ASPARTATE AMINO TRANSFERASE 73 IU/L (15-46); BILIRUBIN,INDIRECT 0.5 mg/dl (0-1.1); BILIRUBIN,TOTAL 0.5 mg/dl (0.2-1.3); BLOOD UREA NITROGEN 70 mg/dl (7-20); CALCIUM 9.2 mg/dl (8.4-10.2); CARBON DIOXIDE 21 mmol/L (21-31); CHLORIDE 99 mmol/L (97-110); CREATININE 1.75 mg/dl (0.44-1.00); GLUCOSE 128 mg/dl (70-220); MAGNESIUM 2.9 mg/dl (1.7-2.5); POTASSIUM 3.9 mmol/L (3.5-5.1); SODIUM 131 mmol/L (135-144); TOTAL PROTEIN 6.7 g/dl (6.1-8.1)
[2018-01-15] MEDS: DEXTROSE 5%-0.45% NACL 1,000 ML IV ×2 (07:50→21:48)
[2018-01-15] MEDS: SENNA/DOCUSATE NA (8.6MG/50MG) TAB PO ×2 (08:41→21:00)
[2018-01-15] MEDS: POLYETHYLENE GLYCOL 17 GM PACKET PO (08:41)
[2018-01-15] MEDS: ONDANSETRON 4 MG INJ IV (09:06)
[2018-01-15] MEDS ORDERED: LIDOCAINE 2% (SDV) 5 ML INJ (17:02)
[2018-01-15] MEDS ORDERED: PROPOFOL 20 ML (17:02)
[2018-01-15] MEDS ORDERED: ROCURONIUM 50 MG INJ (17:14)
[2018-01-15] MEDS ORDERED: SUCCINYLCHOLINE CHLORIDE 100 MG/5 ML SYG IV (17:14)
[2018-01-15] MEDS ORDERED: ONDANSETRON 4 MG INJ (17:14)
[2018-01-15] MEDS ORDERED: MIDAZOLAM 1 MG/ML 2 ML INJ (17:15)
[2018-01-15] MEDS ORDERED: FENTAnyl 50 MCG/ML VIAL (17:15)
[2018-01-15] MEDS ORDERED: PHENYLephrine (100 MCG/ML) 5ML SYG (17:48)
[2018-01-15] MEDS ORDERED: SUGAMMADEX SODIUM 200 MG/2 ML VIAL IV (18:21)
[2018-01-15] MEDS ORDERED: ALBUMIN HUMAN 5% 500 ML (18:35)
[2018-01-15] MEDS ORDERED: HYDROmorphONE (0.2 MG/ML) 10ML SYG IV ×2 (19:00)
[2018-01-15] MEDS ORDERED: KETOROLAC 30 MG INJ IV (19:00)
[2018-01-15] MEDS ORDERED: DIPHENHYDRAMINE 50 MG INJ IV (19:00)
[2018-01-15] MEDS ORDERED: FENTAnyl 50 MCG/ML VIAL IV ×2 (19:00)
[2018-01-15] MEDS ORDERED: ONDANSETRON 4 MG INJ IV (19:00)
[2018-01-15] MEDS: ALBUMIN HUMAN 5% 250 ML IV ×2 (19:04→19:35)
[2018-01-16] MEDS: PANTOPRAZOLE (EC) 40 MG TAB PO ×2 (06:23→17:06)
[2018-01-16] MEDS: BISACODYL 10 MG SUPP PR (06:24)
[2018-01-16] MEDS: SENNA/DOCUSATE NA (8.6MG/50MG) TAB PO ×3 (08:12→21:08)
[2018-01-16] MEDS: ONDANSETRON 4 MG INJ IV (08:12)
[2018-01-16] MEDS: POLYETHYLENE GLYCOL 17 GM PACKET PO ×2 (08:12→09:00)
[2018-01-16 09:25] LABS: ADD MAN DIFF? NO
[2018-01-16 09:32] LABS: BASOPHILS % 0.3 % (0.0-2.0); EOSINOPHILS % 0.3 % (0.0-7.0); HEMOGLOBIN 9.7 g/dl (12.0-16.0); LYMPHOCYTES # 1.4 10^3/ul (0.8-2.9); LYMPHOCYTES % 22.7 % (15.0-51.0); MEAN CORPUSCULAR HEMOGLOBIN 30.9 pg (29.0-33.0); MEAN CORPUSCULAR HGB CONC 33.4 g/dl (32.0-37.0); MEAN CORPUSCULAR VOLUME 92.4 fl (82.0-101.0); MEAN PLATELET VOLUME 11.7 fl (7.4-10.4); MONOCYTE # 0.5 10^3/ul (0.3-0.9); MONOCYTES % 7.1 % (0.0-11.0); NEUTROPHIL # 4.4 10^3/ul (1.6-7.5); NEUTROPHILS % 69.3 % (39.0-77.0); PLATELET COUNT 205 10^3/UL (140-415); RED BLOOD COUNT 3.14 10^6/ul (4.20-5.40); RED CELL DISTRIBUTION WIDTH 14.1 % (11.5-14.5)
[2018-01-16 09:32] LABS: WHITE BLOOD COUNT 6.4 10^3/ul (4.8-10.8)
[2018-01-16 10:08] LABS: ALBUMIN 3.6 g/dl (3.3-4.9); ANION GAP 13 (8-16); BLOOD UREA NITROGEN 39 mg/dl (7-20); CALCIUM 9.5 mg/dl (8.4-10.2); CARBON DIOXIDE 23 mmol/L (21-31); CHLORIDE 104 mmol/L (97-110); CREATININE 1.03 mg/dl (0.44-1.00); GLUCOSE 95 mg/dl (70-220); MAGNESIUM 2.3 mg/dl (1.7-2.5); PHOSPHORUS 3.3 mg/dl (2.5-4.9); POTASSIUM 4.2 mmol/L (3.5-5.1); SODIUM 136 mmol/L (135-144)
[2018-01-16] MEDS: morphine 2 MG INJ IV (12:12)
[2018-01-16] MEDS: DEXTROSE 5%-0.45% NACL 1,000 ML IV (12:28)
[2018-01-16] MEDS ORDERED: FENTAnyl PATCH 12 MCG/HR TRANSDERM (14:30)
[2018-01-17] MEDS: DEXTROSE 5%-0.45% NACL 1,000 ML IV ×3 (02:05→20:40)
[2018-01-17] MEDS: PANTOPRAZOLE (EC) 40 MG TAB PO ×2 (05:42→17:06)
[2018-01-17 07:55] LABS: ADD MAN DIFF? NO
[2018-01-17 07:59] LABS: BASOPHILS % 0.3 % (0.0-2.0); EOSINOPHILS # 0.1 10^3/ul (0.0-0.5); EOSINOPHILS % 0.7 % (0.0-7.0); LYMPHOCYTES # 1.4 10^3/ul (0.8-2.9); LYMPHOCYTES % 14.1 % (15.0-51.0); MEAN CORPUSCULAR HGB CONC 33.3 g/dl (32.0-37.0); MEAN CORPUSCULAR VOLUME 92.9 fl (82.0-101.0); MEAN PLATELET VOLUME 11.9 fl (7.4-10.4); MONOCYTE # 0.6 10^3/ul (0.3-0.9); MONOCYTES % 5.9 % (0.0-11.0); NEUTROPHIL # 7.9 10^3/ul (1.6-7.5); NEUTROPHILS % 78.5 % (39.0-77.0); PLATELET COUNT 186 10^3/UL (140-415); RED BLOOD COUNT 3.23 10^6/ul (4.20-5.40); RED CELL DISTRIBUTION WIDTH 14.1 % (11.5-14.5)
[2018-01-17] MEDS: POLYETHYLENE GLYCOL 17 GM PACKET PO (08:25)
[2018-01-17] MEDS: SENNA/DOCUSATE NA (8.6MG/50MG) TAB PO ×2 (08:25→20:38)
[2018-01-17 08:26] LABS: ALBUMIN 3.1 g/dl (3.3-4.9); ANION GAP 10 (8-16); BLOOD UREA NITROGEN 19 mg/dl (7-20); CALCIUM 9.7 mg/dl (8.4-10.2); CARBON DIOXIDE 27 mmol/L (21-31); CHLORIDE 106 mmol/L (97-110); CREATININE 0.83 mg/dl (0.44-1.00); GLUCOSE 104 mg/dl (70-220); MAGNESIUM 1.9 mg/dl (1.7-2.5); PHOSPHORUS 2.8 mg/dl (2.5-4.9); POTASSIUM 3.7 mmol/L (3.5-5.1); SODIUM 139 mmol/L (135-144)
[2018-01-17] MEDS: ONDANSETRON 4 MG INJ IV (11:04)
[2018-01-18] MEDS: PANTOPRAZOLE (EC) 40 MG TAB PO ×2 (05:59→18:00)
[2018-01-18 07:55] LABS: ADD MAN DIFF? NO
[2018-01-18 08:08] LABS: BASOPHILS % 0.3 % (0.0-2.0); EOSINOPHILS # 0.1 10^3/ul (0.0-0.5); EOSINOPHILS % 0.8 % (0.0-7.0); HEMATOCRIT 29.2 % (37.0-47.0); HEMOGLOBIN 9.8 g/dl (12.0-16.0); LYMPHOCYTES # 1.3 10^3/ul (0.8-2.9); LYMPHOCYTES % 14.4 % (15.0-51.0); MEAN CORPUSCULAR HEMOGLOBIN 31.2 pg (29.0-33.0); MEAN CORPUSCULAR HGB CONC 33.6 g/dl (32.0-37.0); MEAN PLATELET VOLUME 11.5 fl (7.4-10.4); MONOCYTE # 0.5 10^3/ul (0.3-0.9); MONOCYTES % 5.8 % (0.0-11.0); NEUTROPHIL # 6.9 10^3/ul (1.6-7.5); NEUTROPHILS % 78.4 % (39.0-77.0); PLATELET COUNT 167 10^3/UL (140-415); RED BLOOD COUNT 3.14 10^6/ul (4.20-5.40); RED CELL DISTRIBUTION WIDTH 13.9 % (11.5-14.5)
[2018-01-18 08:08] LABS: WHITE BLOOD COUNT 8.8 10^3/ul (4.8-10.8)
[2018-01-18 08:25] LABS: ALBUMIN 2.7 g/dl (3.3-4.9); ANION GAP 9 (8-16); BLOOD UREA NITROGEN 13 mg/dl (7-20); CALCIUM 9.7 mg/dl (8.4-10.2); CARBON DIOXIDE 26 mmol/L (21-31); CHLORIDE 106 mmol/L (97-110); CREATININE 0.74 mg/dl (0.44-1.00); GLUCOSE 116 mg/dl (70-220); MAGNESIUM 1.8 mg/dl (1.7-2.5); PHOSPHORUS 2.7 mg/dl (2.5-4.9); POTASSIUM 3.8 mmol/L (3.5-5.1); SODIUM 137 mmol/L (135-144)
[2018-01-18] MEDS: SENNA/DOCUSATE NA (8.6MG/50MG) TAB PO ×2 (08:26→20:13)
[2018-01-18] MEDS: POLYETHYLENE GLYCOL 17 GM PACKET PO (08:26)
[2018-01-18 08:27] LABS: ALANINE AMINOTRANSFERASE 67 IU/L (13-69); ALBUMIN/GLOBULIN RATIO 1.07; ALKALINE PHOSPHATASE 142 IU/L (42-121); ANION GAP 10 (8-16); ASPARTATE AMINO TRANSFERASE 31 IU/L (15-46); BILIRUBIN,INDIRECT 0.5 mg/dl (0-1.1); BILIRUBIN,TOTAL 0.5 mg/dl (0.2-1.3); BLOOD UREA NITROGEN 13 mg/dl (7-20); CALCIUM 9.5 mg/dl (8.4-10.2); CARBON DIOXIDE 25 mmol/L (21-31); CHLORIDE 106 mmol/L (97-110); CREATININE 0.75 mg/dl (0.44-1.00); GLUCOSE 119 mg/dl (70-220); POTASSIUM 3.7 mmol/L (3.5-5.1); SODIUM 137 mmol/L (135-144); TOTAL PROTEIN 5.8 g/dl (6.1-8.1)
[2018-01-18] MEDS: ONDANSETRON 4 MG INJ IV ×2 (12:03→20:20)
[2018-01-18] MEDS: LIDOCAINE 1% (MDV) 10 ML INJ (15:19)
[2018-01-18] MEDS: SOD CHLORIDE 0.9% 500 ML (15:19)
[2018-01-18] MEDS: IOHEXOL 300MG/ML 150 ML BTL (15:19)
[2018-01-18] MEDS: DEXTROSE 5%-0.45% NACL 1,000 ML IV (15:23)
[2018-01-18] MEDS: PROPOFOL 20 ML (15:47)
[2018-01-18] MEDS: FENTAnyl 50 MCG/ML VIAL (15:47)
[2018-01-18] MEDS: MIDAZOLAM 1 MG/ML 2 ML INJ (15:48)
[2018-01-18] MEDS: EPHEDrine SULFATE 50 MG/5 ML SYG (16:39)
[2018-01-18] MEDS ORDERED: ONDANSETRON 4 MG INJ IV (18:00)
[2018-01-18] MEDS ORDERED: FENTAnyl 50 MCG/ML VIAL IV (18:00)
[2018-01-18] MEDS: traMADol 50 MG TAB PO (20:05)
[2018-01-18] MEDS ORDERED: morphine 2 MG INJ (20:15)
[2018-01-18] MEDS: morphine 2 MG INJ IV (20:19)
[2018-01-18] MEDS: HYDROmorphONE 0.5 MG/0.5 ML SYG IV (23:12)
[2018-01-19] MEDS: PANTOPRAZOLE (EC) 40 MG TAB PO ×2 (05:34→17:35)
[2018-01-19] MEDS: DEXTROSE 5%-0.45% NACL 1,000 ML IV ×2 (05:36→17:36)
[2018-01-19] MEDS: POLYETHYLENE GLYCOL 17 GM PACKET PO (08:09)
[2018-01-19] MEDS: SENNA/DOCUSATE NA (8.6MG/50MG) TAB PO ×2 (08:09→21:00)
[2018-01-20] MEDS: HYDROmorphONE 0.5 MG/0.5 ML SYG IV ×3 (00:27→23:27)
[2018-01-20] MEDS: ONDANSETRON 4 MG INJ IV ×3 (06:21→23:54)
[2018-01-20] MEDS: DEXTROSE 5%-0.45% NACL 1,000 ML IV ×2 (06:22→21:17)
[2018-01-20] MEDS: PANTOPRAZOLE (EC) 40 MG TAB PO ×2 (06:22→17:46)
[2018-01-20] MEDS: POLYETHYLENE GLYCOL 17 GM PACKET PO (08:55)
[2018-01-20] MEDS: SENNA/DOCUSATE NA (8.6MG/50MG) TAB PO ×2 (08:56→21:00)
[2018-01-21] MEDS: PANTOPRAZOLE (EC) 40 MG TAB PO ×2 (05:17→18:19)
[2018-01-21] MEDS: POLYETHYLENE GLYCOL 17 GM PACKET PO (08:19)
[2018-01-21] MEDS: SENNA/DOCUSATE NA (8.6MG/50MG) TAB PO ×2 (08:20→20:21)
[2018-01-21 09:10] LABS: ADD MAN DIFF? NO
[2018-01-21 09:22] LABS: WHITE BLOOD COUNT 6.2 10^3/ul (4.8-10.8)
[2018-01-21 09:22] LABS: BASOPHILS % 0.5 % (0.0-2.0); EOSINOPHILS # 0.2 10^3/ul (0.0-0.5); EOSINOPHILS % 2.9 % (0.0-7.0); HEMATOCRIT 28.4 % (37.0-47.0); HEMOGLOBIN 9.3 g/dl (12.0-16.0); LYMPHOCYTES # 1.2 10^3/ul (0.8-2.9); LYMPHOCYTES % 19.8 % (15.0-51.0); MEAN CORPUSCULAR HEMOGLOBIN 31.1 pg (29.0-33.0); MEAN CORPUSCULAR HGB CONC 32.7 g/dl (32.0-37.0); MEAN PLATELET VOLUME 12.1 fl (7.4-10.4); MONOCYTE # 0.5 10^3/ul (0.3-0.9); NEUTROPHIL # 4.2 10^3/ul (1.6-7.5); NEUTROPHILS % 68.5 % (39.0-77.0); PLATELET COUNT 166 10^3/UL (140-415); RED BLOOD COUNT 2.99 10^6/ul (4.20-5.40); RED CELL DISTRIBUTION WIDTH 13.5 % (11.5-14.5)
[2018-01-21 09:30] LABS: ALBUMIN 2.7 g/dl (3.3-4.9); ANION GAP 4 (8-16); BLOOD UREA NITROGEN 7 mg/dl (7-20); CALCIUM 9.2 mg/dl (8.4-10.2); CARBON DIOXIDE 28 mmol/L (21-31); CHLORIDE 104 mmol/L (97-110); CREATININE 0.67 mg/dl (0.44-1.00); GLUCOSE 110 mg/dl (70-220); MAGNESIUM 1.6 mg/dl (1.7-2.5); PHOSPHORUS 2.8 mg/dl (2.5-4.9); POTASSIUM 3.5 mmol/L (3.5-5.1); SODIUM 132 mmol/L (135-144)
[2018-01-21] MEDS: DEXTROSE 5%-0.45% NACL 1,000 ML IV (09:35)
[2018-01-21] MEDS: POTASSIUM CHLORIDE 100 ML IVPB ×2 (13:07→15:40)
[2018-01-21] MEDS: PROPOFOL 20 ML (17:04)
[2018-01-21] MEDS: HYDROmorphONE 0.5 MG/0.5 ML SYG IV (17:05)
[2018-01-21] MEDS: METOCLOPRAMIDE 10 MG INJ IV (21:35)
[2018-01-21] MEDS: MAGNESIUM SULFATE 2 GM/50 ML 50 ML IVPB (21:36)
[2018-01-22] MEDS: DEXTROSE 5%-0.45% NACL 1,000 ML IV ×2 (01:46→13:35)
[2018-01-22] MEDS: PANTOPRAZOLE (EC) 40 MG TAB PO ×2 (05:55→17:17)
[2018-01-22] MEDS: POLYETHYLENE GLYCOL 17 GM PACKET PO (08:07)
[2018-01-22] MEDS: SENNA/DOCUSATE NA (8.6MG/50MG) TAB PO (08:07)
[2018-01-22 08:45] LABS: ADD MAN DIFF? NO
[2018-01-22 08:51] LABS: BASOPHILS % 0.6 % (0.0-2.0); EOSINOPHILS # 0.1 10^3/ul (0.0-0.5); EOSINOPHILS % 2.7 % (0.0-7.0); HEMATOCRIT 26.4 % (37.0-47.0); HEMOGLOBIN 8.8 g/dl (12.0-16.0); LYMPHOCYTES # 1.1 10^3/ul (0.8-2.9); LYMPHOCYTES % 23.7 % (15.0-51.0); MEAN CORPUSCULAR HGB CONC 33.3 g/dl (32.0-37.0); MEAN PLATELET VOLUME 11.2 fl (7.4-10.4); MONOCYTE # 0.4 10^3/ul (0.3-0.9); MONOCYTES % 7.6 % (0.0-11.0); NEUTROPHIL # 3.1 10^3/ul (1.6-7.5); NEUTROPHILS % 65.2 % (39.0-77.0); PLATELET COUNT 148 10^3/UL (140-415); RED BLOOD COUNT 2.84 10^6/ul (4.20-5.40); RED CELL DISTRIBUTION WIDTH 13.4 % (11.5-14.5)
[2018-01-22 08:51] LABS: WHITE BLOOD COUNT 4.7 10^3/ul (4.8-10.8)
[2018-01-22 09:17] LABS: ALBUMIN 2.5 g/dl (3.3-4.9); ANION GAP 6 (8-16); BLOOD UREA NITROGEN 3 mg/dl (7-20); CARBON DIOXIDE 29 mmol/L (21-31); CHLORIDE 107 mmol/L (97-110); CREATININE 0.52 mg/dl (0.44-1.00); GLUCOSE 104 mg/dl (70-220); MAGNESIUM 2.1 mg/dl (1.7-2.5); PHOSPHORUS 2.9 mg/dl (2.5-4.9); POTASSIUM 3.6 mmol/L (3.5-5.1); SODIUM 138 mmol/L (135-144)
[2018-01-22 09:23] LABS: ALANINE AMINOTRANSFERASE 44 IU/L (13-69); ALBUMIN 2.6 g/dl (3.3-4.9); ALKALINE PHOSPHATASE 119 IU/L (42-121); ASPARTATE AMINO TRANSFERASE 20 IU/L (15-46); BILIRUBIN,INDIRECT 0.3 mg/dl (0-1.1); BILIRUBIN,TOTAL 0.3 mg/dl (0.2-1.3); TOTAL PROTEIN 5.1 g/dl (6.1-8.1)
[2018-01-22] MEDS: METOCLOPRAMIDE 10 MG INJ IV ×2 (16:18→22:53)
[2018-01-22] MEDS: ONDANSETRON 4 MG INJ IV (20:05)
[2018-01-22] MEDS: DOCUSATE SODIUM 100 MG CAP PO (20:06)
[2018-01-23] MEDS: DEXTROSE 5%-0.45% NACL 1,000 ML IV ×2 (00:08→15:35)
[2018-01-23] MEDS: traMADol 50 MG TAB PO (00:09)
[2018-01-23] MEDS: PANTOPRAZOLE (EC) 40 MG TAB PO ×2 (05:26→17:37)
[2018-01-23] MEDS: BISACODYL 10 MG SUPP PR (05:26)
[2018-01-23] MEDS: ONDANSETRON 4 MG INJ IV ×2 (05:27→22:18)
[2018-01-23] MEDS: DOCUSATE SODIUM 100 MG CAP PO ×2 (08:22→20:06)
[2018-01-23 09:02] LABS: ADD MAN DIFF? NO
[2018-01-23 09:12] LABS: WHITE BLOOD COUNT 6.4 10^3/ul (4.8-10.8)
[2018-01-23 09:12] LABS: BASOPHILS % 0.5 % (0.0-2.0); EOSINOPHILS # 0.1 10^3/ul (0.0-0.5); EOSINOPHILS % 1.7 % (0.0-7.0); HEMATOCRIT 27.1 % (37.0-47.0); HEMOGLOBIN 9.1 g/dl (12.0-16.0); LYMPHOCYTES # 1.1 10^3/ul (0.8-2.9); LYMPHOCYTES % 16.7 % (15.0-51.0); MEAN CORPUSCULAR HEMOGLOBIN 31.2 pg (29.0-33.0); MEAN CORPUSCULAR HGB CONC 33.6 g/dl (32.0-37.0); MEAN CORPUSCULAR VOLUME 92.8 fl (82.0-101.0); MEAN PLATELET VOLUME 11.1 fl (7.4-10.4); MONOCYTE # 0.6 10^3/ul (0.3-0.9); MONOCYTES % 9.1 % (0.0-11.0); NEUTROPHIL # 4.6 10^3/ul (1.6-7.5); NEUTROPHILS % 71.5 % (39.0-77.0); PLATELET COUNT 170 10^3/UL (140-415); RED BLOOD COUNT 2.92 10^6/ul (4.20-5.40); RED CELL DISTRIBUTION WIDTH 13.2 % (11.5-14.5)
[2018-01-23 09:43] LABS: ALBUMIN 2.6 g/dl (3.3-4.9); ANION GAP 6 (8-16); CALCIUM 8.9 mg/dl (8.4-10.2); CARBON DIOXIDE 30 mmol/L (21-31); CHLORIDE 105 mmol/L (97-110); CREATININE 0.53 mg/dl (0.44-1.00); GLUCOSE 98 mg/dl (70-220); MAGNESIUM 1.8 mg/dl (1.7-2.5); PHOSPHORUS 2.8 mg/dl (2.5-4.9); POTASSIUM 3.2 mmol/L (3.5-5.1); SODIUM 138 mmol/L (135-144)
[2018-01-23 09:44] LABS: BLOOD UREA NITROGEN < 2 mg/dl (7-20)
[2018-01-23] MEDS: POTASSIUM CHLORIDE 100 ML IVPB ×2 (13:00→14:48)
[2018-01-23] MEDS ORDERED: POTASSIUM CHLORIDE (SR) 20 MEQ TAB PO (14:43)
[2018-01-23] MEDS: POTASSIUM CHLORIDE (SR) 20 MEQ TAB PO ×3 (15:32→23:16)
[2018-01-23] MEDS: METOCLOPRAMIDE 10 MG INJ IV (17:40)
[2018-01-23] MEDS: ONDANSETRON 4 MG TAB PO (22:10)
[2018-01-23] MEDS: HYDROmorphONE 0.5 MG/0.5 ML SYG IV (22:11)
[2018-01-24] MEDS: DEXTROSE 5%-0.45% NACL 1,000 ML IV ×2 (05:17→17:12)
[2018-01-24] MEDS: PANTOPRAZOLE (EC) 40 MG TAB PO ×2 (05:17→17:12)
[2018-01-24] MEDS: DOCUSATE SODIUM 100 MG CAP PO ×2 (08:28→20:50)
[2018-01-24] MEDS: HYDROmorphONE 0.5 MG/0.5 ML SYG IV ×2 (08:33→21:28)
[2018-01-24] MEDS: ONDANSETRON 4 MG INJ IV ×2 (08:38→21:22)
[2018-01-24 09:41] LABS: ADD MAN DIFF? NO
[2018-01-24 09:46] LABS: BASOPHILS % 0.5 % (0.0-2.0); EOSINOPHILS # 0.1 10^3/ul (0.0-0.5); EOSINOPHILS % 2.3 % (0.0-7.0); HEMATOCRIT 26.4 % (37.0-47.0); HEMOGLOBIN 8.9 g/dl (12.0-16.0); LYMPHOCYTES # 1.4 10^3/ul (0.8-2.9); LYMPHOCYTES % 21.9 % (15.0-51.0); MEAN CORPUSCULAR HEMOGLOBIN 31.6 pg (29.0-33.0); MEAN CORPUSCULAR HGB CONC 33.7 g/dl (32.0-37.0); MEAN CORPUSCULAR VOLUME 93.6 fl (82.0-101.0); MEAN PLATELET VOLUME 10.6 fl (7.4-10.4); MONOCYTE # 0.5 10^3/ul (0.3-0.9); MONOCYTES % 7.9 % (0.0-11.0); NEUTROPHIL # 4.1 10^3/ul (1.6-7.5); NEUTROPHILS % 66.9 % (39.0-77.0); PLATELET COUNT 162 10^3/UL (140-415); RED BLOOD COUNT 2.82 10^6/ul (4.20-5.40); RED CELL DISTRIBUTION WIDTH 13.4 % (11.5-14.5)
[2018-01-24 09:46] LABS: WHITE BLOOD COUNT 6.2 10^3/ul (4.8-10.8)
[2018-01-24 10:17] LABS: ANION GAP 12 (8-16); CALCIUM 8.4 mg/dl (8.4-10.2); CARBON DIOXIDE 26 mmol/L (21-31); CHLORIDE 104 mmol/L (97-110); CREATININE 0.47 mg/dl (0.44-1.00); GLUCOSE 104 mg/dl (70-220); MAGNESIUM 1.6 mg/dl (1.7-2.5); PHOSPHORUS 2.9 mg/dl (2.5-4.9); POTASSIUM 3.7 mmol/L (3.5-5.1); SODIUM 138 mmol/L (135-144)
[2018-01-24 10:19] LABS: BLOOD UREA NITROGEN < 2 mg/dl (7-20)
[2018-01-24] MEDS: MAGNESIUM OXIDE 400 MG TAB PO (20:50)
[2018-01-24] MEDS: SUCRALFATE (100 MG/ML) 10ML CUP PO (20:50)
[2018-01-25] MEDS: PANTOPRAZOLE (EC) 40 MG TAB PO ×2 (05:33→17:13)
[2018-01-25] MEDS: DEXTROSE 5%-0.45% NACL 1,000 ML IV ×3 (05:33→20:39)
[2018-01-25] MEDS: HYDROmorphONE 0.5 MG/0.5 ML SYG IV ×2 (05:33→20:41)
[2018-01-25] MEDS: ONDANSETRON 4 MG INJ IV ×3 (08:29→20:41)
[2018-01-25] MEDS: DOCUSATE SODIUM 100 MG CAP PO ×2 (08:30→20:41)
[2018-01-25] MEDS: MAGNESIUM OXIDE 400 MG TAB PO (08:30)
[2018-01-25] MEDS: SUCRALFATE (100 MG/ML) 10ML CUP PO ×4 (08:30→20:41)
[2018-01-25 09:29] LABS: ADD MAN DIFF? NO
[2018-01-25 09:33] LABS: WHITE BLOOD COUNT 6.1 10^3/ul (4.8-10.8)
[2018-01-25 09:33] LABS: BASOPHILS % 0.5 % (0.0-2.0); EOSINOPHILS # 0.1 10^3/ul (0.0-0.5); EOSINOPHILS % 1.6 % (0.0-7.0); HEMATOCRIT 28.1 % (37.0-47.0); HEMOGLOBIN 9.5 g/dl (12.0-16.0); LYMPHOCYTES # 1.1 10^3/ul (0.8-2.9); LYMPHOCYTES % 17.2 % (15.0-51.0); MEAN CORPUSCULAR HEMOGLOBIN 31.7 pg (29.0-33.0); MEAN CORPUSCULAR HGB CONC 33.8 g/dl (32.0-37.0); MEAN CORPUSCULAR VOLUME 93.7 fl (82.0-101.0); MEAN PLATELET VOLUME 10.8 fl (7.4-10.4); MONOCYTE # 0.4 10^3/ul (0.3-0.9); MONOCYTES % 6.1 % (0.0-11.0); NEUTROPHIL # 4.5 10^3/ul (1.6-7.5); NEUTROPHILS % 74.3 % (39.0-77.0); PLATELET COUNT 170 10^3/UL (140-415); RED CELL DISTRIBUTION WIDTH 13.4 % (11.5-14.5)
[2018-01-25 09:52] LABS: ANION GAP 10 (8-16); BLOOD UREA NITROGEN 2 mg/dl (7-20); CALCIUM 8.7 mg/dl (8.4-10.2); CARBON DIOXIDE 28 mmol/L (21-31); CHLORIDE 102 mmol/L (97-110); CREATININE 0.52 mg/dl (0.44-1.00); GLUCOSE 107 mg/dl (70-220); MAGNESIUM 1.5 mg/dl (1.7-2.5); POTASSIUM 3.5 mmol/L (3.5-5.1); SODIUM 136 mmol/L (135-144)
[2018-01-25] MEDS: METOCLOPRAMIDE 10 MG INJ IV ×2 (11:34→17:13)
[2018-01-26] MEDS: HYDROmorphONE 0.5 MG/0.5 ML SYG IV ×2 (01:04→20:35)
[2018-01-26] MEDS: METOCLOPRAMIDE 10 MG INJ IV (01:04)
[2018-01-26] MEDS: PANTOPRAZOLE 40 MG INJ IV ×2 (05:12→17:38)
[2018-01-26 07:30] LABS: ADD MAN DIFF? NO
[2018-01-26 07:42] LABS: BASOPHILS % 0.2 % (0.0-2.0); EOSINOPHILS # 0.1 10^3/ul (0.0-0.5); EOSINOPHILS % 1.8 % (0.0-7.0); HEMATOCRIT 28.4 % (37.0-47.0); HEMOGLOBIN 9.5 g/dl (12.0-16.0); LYMPHOCYTES # 1.2 10^3/ul (0.8-2.9); LYMPHOCYTES % 23.8 % (15.0-51.0); MEAN CORPUSCULAR HEMOGLOBIN 30.9 pg (29.0-33.0); MEAN CORPUSCULAR HGB CONC 33.5 g/dl (32.0-37.0); MEAN CORPUSCULAR VOLUME 92.5 fl (82.0-101.0); MEAN PLATELET VOLUME 11.4 fl (7.4-10.4); MONOCYTE # 0.5 10^3/ul (0.3-0.9); MONOCYTES % 8.9 % (0.0-11.0); NEUTROPHIL # 3.3 10^3/ul (1.6-7.5); NEUTROPHILS % 64.9 % (39.0-77.0); PLATELET COUNT 165 10^3/UL (140-415); RED BLOOD COUNT 3.07 10^6/ul (4.20-5.40); RED CELL DISTRIBUTION WIDTH 13.4 % (11.5-14.5)
[2018-01-26 08:24] LABS: ANION GAP 9 (8-16); BLOOD UREA NITROGEN 3 mg/dl (7-20); CALCIUM 8.7 mg/dl (8.4-10.2); CARBON DIOXIDE 30 mmol/L (21-31); CHLORIDE 102 mmol/L (97-110); CREATININE 0.51 mg/dl (0.44-1.00); GLUCOSE 111 mg/dl (70-220); MAGNESIUM 1.5 mg/dl (1.7-2.5); PHOSPHORUS 2.9 mg/dl (2.5-4.9); SODIUM 138 mmol/L (135-144)
[2018-01-26] MEDS: DOCUSATE SODIUM 100 MG CAP PO ×2 (09:35→20:34)
[2018-01-26] MEDS: SUCRALFATE (100 MG/ML) 10ML CUP PO ×4 (09:35→20:34)
[2018-01-26] MEDS: DEXTROSE 5%-0.45% NACL 1,000 ML IV (09:36)
[2018-01-26] MEDS: POTASSIUM CHLORIDE 20 MEQ POWDER FOR ORAL SOLN PO (11:23)
[2018-01-26] MEDS: MAGNESIUM SULFATE 2 GM/50 ML 50 ML IVPB (11:24)
[2018-01-26] MEDS: POTASSIUM CHLORIDE 100 ML IVPB ×2 (14:06→15:20)
[2018-01-26] MEDS: POTASSIUM CHLORIDE (SR) 20 MEQ TAB PO (15:32)
[2018-01-26] MEDS: ONDANSETRON 4 MG INJ IV (20:34)
[2018-01-27] MEDS: METOCLOPRAMIDE 10 MG INJ IV ×2 (00:08→23:20)
[2018-01-27] MEDS: HYDROmorphONE 0.5 MG/0.5 ML SYG IV ×3 (00:41→23:20)
[2018-01-27] MEDS: DEXTROSE 5%-0.45% NACL 1,000 ML IV ×2 (02:08→13:35)
[2018-01-27] MEDS: PANTOPRAZOLE 40 MG INJ IV ×2 (05:40→18:55)
[2018-01-27 06:58] LABS: ADD MAN DIFF? NO
[2018-01-27 07:36] LABS: BASOPHILS % 0.5 % (0.0-2.0); EOSINOPHILS # 0.2 10^3/ul (0.0-0.5); EOSINOPHILS % 2.7 % (0.0-7.0); HEMATOCRIT 25.5 % (37.0-47.0); HEMOGLOBIN 8.4 g/dl (12.0-16.0); LYMPHOCYTES # 1.5 10^3/ul (0.8-2.9); LYMPHOCYTES % 27.5 % (15.0-51.0); MEAN CORPUSCULAR HEMOGLOBIN 30.8 pg (29.0-33.0); MEAN CORPUSCULAR HGB CONC 32.9 g/dl (32.0-37.0); MEAN CORPUSCULAR VOLUME 93.4 fl (82.0-101.0); MEAN PLATELET VOLUME 11.2 fl (7.4-10.4); MONOCYTE # 0.5 10^3/ul (0.3-0.9); MONOCYTES % 9.8 % (0.0-11.0); NEUTROPHIL # 3.3 10^3/ul (1.6-7.5); NEUTROPHILS % 59.1 % (39.0-77.0); PLATELET COUNT 177 10^3/UL (140-415); RED BLOOD COUNT 2.73 10^6/ul (4.20-5.40); RED CELL DISTRIBUTION WIDTH 13.6 % (11.5-14.5)
[2018-01-27 07:36] LABS: WHITE BLOOD COUNT 5.5 10^3/ul (4.8-10.8)
[2018-01-27 08:14] LABS: ANION GAP 8 (8-16); CALCIUM 8.4 mg/dl (8.4-10.2); CARBON DIOXIDE 29 mmol/L (21-31); CHLORIDE 104 mmol/L (97-110); CREATININE 0.48 mg/dl (0.44-1.00); GLUCOSE 104 mg/dl (70-220); MAGNESIUM 2.1 mg/dl (1.7-2.5); PHOSPHORUS 2.4 mg/dl (2.5-4.9); POTASSIUM 3.6 mmol/L (3.5-5.1); SODIUM 137 mmol/L (135-144)
[2018-01-27 08:29] LABS: BLOOD UREA NITROGEN < 2 mg/dl (7-20)
[2018-01-27] MEDS: DOCUSATE SODIUM 100 MG CAP PO ×2 (08:43→20:34)
[2018-01-27] MEDS: SUCRALFATE (100 MG/ML) 10ML CUP PO ×4 (08:43→20:34)
[2018-01-27] MEDS ORDERED: LORAZEPAM 0.5 MG TAB PO (11:43)
[2018-01-27] MEDS: NEUTRA-PHOS 250 MG PACKET PO (13:33)
[2018-01-27] MEDS: ONDANSETRON 4 MG INJ IV (16:55)
[2018-01-28] MEDS: DEXTROSE 5%-0.45% NACL 1,000 ML IV (02:30)
[2018-01-28] MEDS: PANTOPRAZOLE 40 MG INJ IV ×2 (05:46→17:48)
[2018-01-28 07:44] LABS: ADD MAN DIFF? NO
[2018-01-28 07:50] LABS: WHITE BLOOD COUNT 5.7 10^3/ul (4.8-10.8)
[2018-01-28 07:50] LABS: BASOPHILS % 0.5 % (0.0-2.0); EOSINOPHILS # 0.1 10^3/ul (0.0-0.5); EOSINOPHILS % 2.1 % (0.0-7.0); HEMATOCRIT 28.8 % (37.0-47.0); HEMOGLOBIN 9.7 g/dl (12.0-16.0); LYMPHOCYTES # 1.4 10^3/ul (0.8-2.9); LYMPHOCYTES % 24.8 % (15.0-51.0); MEAN CORPUSCULAR HEMOGLOBIN 31.6 pg (29.0-33.0); MEAN CORPUSCULAR HGB CONC 33.7 g/dl (32.0-37.0); MEAN CORPUSCULAR VOLUME 93.8 fl (82.0-101.0); MEAN PLATELET VOLUME 11.1 fl (7.4-10.4); MONOCYTE # 0.5 10^3/ul (0.3-0.9); MONOCYTES % 8.3 % (0.0-11.0); NEUTROPHIL # 3.6 10^3/ul (1.6-7.5); NEUTROPHILS % 63.9 % (39.0-77.0); PLATELET COUNT 198 10^3/UL (140-415); RED BLOOD COUNT 3.07 10^6/ul (4.20-5.40); RED CELL DISTRIBUTION WIDTH 13.3 % (11.5-14.5)
[2018-01-28 08:15] LABS: ANION GAP 9 (8-16); BLOOD UREA NITROGEN 2 mg/dl (7-20); CALCIUM 8.6 mg/dl (8.4-10.2); CARBON DIOXIDE 31 mmol/L (21-31); CHLORIDE 101 mmol/L (97-110); CREATININE 0.46 mg/dl (0.44-1.00); GLUCOSE 104 mg/dl (70-220); MAGNESIUM 1.8 mg/dl (1.7-2.5); PHOSPHORUS 3.2 mg/dl (2.5-4.9); POTASSIUM 3.1 mmol/L (3.5-5.1); SODIUM 138 mmol/L (135-144)
[2018-01-28] MEDS: DOCUSATE SODIUM 100 MG CAP PO ×2 (09:00→20:48)
[2018-01-28] MEDS: SUCRALFATE (100 MG/ML) 10ML CUP PO ×4 (09:47→20:46)
[2018-01-28] MEDS: POTASSIUM CHLORIDE (SR) 20 MEQ TAB PO (10:38)
[2018-01-28] MEDS: D5W-0.45 NACL + KCL 20 MEQ 1,000 ML IV (10:39)
[2018-01-28] MEDS: ONDANSETRON 4 MG INJ IV (16:20)
[2018-01-28] MEDS: METOCLOPRAMIDE 10 MG INJ IV (20:42)
[2018-01-28] MEDS: HYDROmorphONE 0.5 MG/0.5 ML SYG IV (20:43)
[2018-01-29] MEDS: D5W-0.45 NACL + KCL 20 MEQ 1,000 ML IV ×2 (00:41→12:13)
[2018-01-29] MEDS: PANTOPRAZOLE 40 MG INJ IV ×2 (05:39→17:34)
[2018-01-29 07:50] LABS: ADD MAN DIFF? NO
[2018-01-29 07:55] LABS: WHITE BLOOD COUNT 5.9 10^3/ul (4.8-10.8)
[2018-01-29 07:55] LABS: BASOPHILS % 0.5 % (0.0-2.0); EOSINOPHILS # 0.1 10^3/ul (0.0-0.5); EOSINOPHILS % 2.4 % (0.0-7.0); HEMATOCRIT 25.9 % (37.0-47.0); HEMOGLOBIN 8.6 g/dl (12.0-16.0); LYMPHOCYTES # 1.2 10^3/ul (0.8-2.9); LYMPHOCYTES % 20.4 % (15.0-51.0); MEAN CORPUSCULAR HGB CONC 33.2 g/dl (32.0-37.0); MEAN CORPUSCULAR VOLUME 93.5 fl (82.0-101.0); MONOCYTE # 0.4 10^3/ul (0.3-0.9); MONOCYTES % 6.6 % (0.0-11.0); NEUTROPHIL # 4.1 10^3/ul (1.6-7.5); NEUTROPHILS % 69.8 % (39.0-77.0); PLATELET COUNT 198 10^3/UL (140-415); RED BLOOD COUNT 2.77 10^6/ul (4.20-5.40); RED CELL DISTRIBUTION WIDTH 13.4 % (11.5-14.5)
[2018-01-29 08:15] LABS: ALBUMIN 2.5 g/dl (3.3-4.9); ANION GAP 8 (8-16); CALCIUM 8.5 mg/dl (8.4-10.2); CARBON DIOXIDE 30 mmol/L (21-31); CHLORIDE 103 mmol/L (97-110); CREATININE 0.45 mg/dl (0.44-1.00); GLUCOSE 101 mg/dl (70-220); MAGNESIUM 1.6 mg/dl (1.7-2.5); PHOSPHORUS 2.7 mg/dl (2.5-4.9); POTASSIUM 3.7 mmol/L (3.5-5.1); SODIUM 137 mmol/L (135-144)
[2018-01-29 08:17] LABS: BLOOD UREA NITROGEN < 2 mg/dl (7-20)
[2018-01-29] MEDS: DOCUSATE SODIUM 100 MG CAP PO ×2 (09:00→20:58)
[2018-01-29] MEDS: SUCRALFATE (100 MG/ML) 10ML CUP PO ×4 (09:32→20:50)
[2018-01-29] MEDS: POTASSIUM CHLORIDE 20 MEQ POWDER FOR ORAL SOLN PO (12:10)
[2018-01-29] MEDS: MAGNESIUM SULFATE 3 GM in DEXTROSE 5% 100 ML IVPB (12:10)
[2018-01-29] MEDS: ONDANSETRON 4 MG INJ IV ×2 (12:32→20:50)
[2018-01-29] MEDS: METOCLOPRAMIDE 10 MG INJ IV (15:39)
[2018-01-29] MEDS: HYDROmorphONE 0.5 MG/0.5 ML SYG IV (22:00)
[2018-01-30] MEDS: PANTOPRAZOLE 40 MG INJ IV (05:28)
[2018-01-30 07:54] LABS: ADD MAN DIFF? NO
[2018-01-30 08:01] LABS: WHITE BLOOD COUNT 5.8 10^3/ul (4.8-10.8)
[2018-01-30 08:01] LABS: BASOPHILS % 0.5 % (0.0-2.0); EOSINOPHILS # 0.2 10^3/ul (0.0-0.5); EOSINOPHILS % 2.6 % (0.0-7.0); HEMATOCRIT 27.6 % (37.0-47.0); HEMOGLOBIN 9.2 g/dl (12.0-16.0); LYMPHOCYTES # 1.1 10^3/ul (0.8-2.9); LYMPHOCYTES % 19.6 % (15.0-51.0); MEAN CORPUSCULAR HGB CONC 33.3 g/dl (32.0-37.0); MEAN CORPUSCULAR VOLUME 92.9 fl (82.0-101.0); MEAN PLATELET VOLUME 10.1 fl (7.4-10.4); MONOCYTE # 0.5 10^3/ul (0.3-0.9); MONOCYTES % 7.7 % (0.0-11.0); NEUTROPHILS % 69.3 % (39.0-77.0); PLATELET COUNT 209 10^3/UL (140-415); RED BLOOD COUNT 2.97 10^6/ul (4.20-5.40); RED CELL DISTRIBUTION WIDTH 13.4 % (11.5-14.5)
[2018-01-30] MEDS: DOCUSATE SODIUM 100 MG CAP PO (09:00)
[2018-01-30] MEDS: SUCRALFATE (100 MG/ML) 10ML CUP PO ×2 (09:10→13:30)
[2018-01-30] MEDS: METOCLOPRAMIDE 10 MG INJ IV (09:10)
[2018-01-30 09:22] LABS: ALBUMIN 2.6 g/dl (3.3-4.9); ANION GAP 8 (8-16); CALCIUM 8.8 mg/dl (8.4-10.2); CARBON DIOXIDE 32 mmol/L (21-31); CHLORIDE 103 mmol/L (97-110); CREATININE 0.49 mg/dl (0.44-1.00); GLUCOSE 95 mg/dl (70-220); MAGNESIUM 2.2 mg/dl (1.7-2.5); PHOSPHORUS 2.9 mg/dl (2.5-4.9); SODIUM 139 mmol/L (135-144)
[2018-01-30 09:30] LABS: BLOOD UREA NITROGEN < 2 mg/dl (7-20)
== END 2018-01-30 17:35 | disposition home health service (06) | DRG 408 ==
LOC: E/R 13:19 → MS4 17:27
PROC: 0DB98ZX Excision of Duodenum, Via Natural or Artificial Opening Endoscopic, Diagnostic (ICD-10-PCS; 2018-01-15 16:30)
PROC: 0F9730Z Drainage of Common Hepatic Duct with Drainage Device, Percutaneous Approach (ICD-10-PCS; principal; 2018-01-15 17:15)
PROC: 0FPB30Z Removal of Drainage Device from Hepatobiliary Duct, Percutaneous Approach (ICD-10-PCS; 2018-01-15 17:15)
PROC: 0DJ08ZZ Inspection of Upper Intestinal Tract, Via Natural or Artificial Opening Endoscopic (ICD-10-PCS; 2018-01-15 17:15)
DX: C22.1 Intrahepatic bile duct carcinoma (principal); K83.1 Obstruction of bile duct; K31.1 Adult hypertrophic pyloric stenosis; N17.9 Acute kidney failure, unspecified; E87.1 Hypo-osmolality and hyponatremia; E44.0 Moderate protein-calorie malnutrition; Z68.1 Body mass index [BMI] 19.9 or less, adult; K31.5 Obstruction of duodenum; K26.9 Duodenal ulcer, unspecified as acute or chronic, without hemorrhage or perforation; K59.00 Constipation, unspecified; E86.0 Dehydration; E87.6 Hypokalemia; E83.52 Hypercalcemia; G89.29 Other chronic pain; D64.9 Anemia, unspecified; Z53.09 Procedure and treatment not carried out because of other contraindication
CPT/HCPCS: 36415; 71045; 74018; 74176; 75982; 76775; 80048; 80053; 80069; 80076; 81001; 81003; 83605; 83735; 83935; 84100; 84133; 84300; 84484; 85025; 85610; 85730; 87040; 87086; 88305; 93005; 93970; 96374; 97110; 97116; 97162; 97165; 97530; 97535; 99285-25

== ENCOUNTER 2018-02-06 06:40 | Emergency (ER) | payer OTHER | END 2018-02-06 07:29 | disposition home or self-care (01) | LOC: E/R 07:29 | DX: C22.1 Intrahepatic bile duct carcinoma (principal) | CPT/HCPCS: 99284; Z7502 ==

== ENCOUNTER 2018-02-13 10:36 | Emergency (ER) | payer OTHER | END 2018-02-13 10:51 | disposition home or self-care (01) | LOC: E/R 10:51 | DX: M54.9 Dorsalgia, unspecified (principal); Z85.028 Personal history of other malignant neoplasm of stomach | CPT/HCPCS: 99282; Z7502 ==

== ENCOUNTER 2018-02-21 23:17 | Inpatient (IN) | payer OTHER ==
[2018-02-21] MEDS: ACETAMINOPHEN 650 MG SUPP PR (23:54)
[2018-02-21] MEDS: SODIUM CHLORIDE 0.9% 1L BAG IV* (23:54)
[2018-02-22 00:41] LABS: ADD MAN DIFF? NO
[2018-02-22 00:50] LABS: WHITE BLOOD COUNT 10.1 10^3/ul (4.8-10.8)
[2018-02-22 00:51] LABS: ABNORMAL IP MESSAGE 1; BASOPHILS % 0.1 % (0.0-2.0); HEMATOCRIT 27.4 % (37.0-47.0); HEMOGLOBIN 9.6 g/dl (12.0-16.0); LYMPHOCYTES # 0.5 10^3/ul (0.8-2.9); LYMPHOCYTES % 5.2 % (15.0-51.0); MEAN CORPUSCULAR HEMOGLOBIN 31.2 pg (29.0-33.0); MEAN PLATELET VOLUME 10.4 fl (7.4-10.4); MONOCYTE # 0.2 10^3/ul (0.3-0.9); MONOCYTES % 2.4 % (0.0-11.0); NEUTROPHIL # 9.3 10^3/ul (1.6-7.5); NEUTROPHILS % 92.1 % (39.0-77.0); PLATELET COUNT 351 10^3/UL (140-415); RED BLOOD COUNT 3.08 10^6/ul (4.20-5.40); RED CELL DISTRIBUTION WIDTH 13.8 % (11.5-14.5)
[2018-02-22] MEDS: HYDROmorphONE 0.5 MG/0.5 ML SYG IV (00:54)
[2018-02-22 01:11] LABS: INR 1.18; POSITIVE DIFF @See below; PROTIME 15.2 Sec (11.9-14.9); PT RATIO 1.2
[2018-02-22 01:12] LABS: PARTIAL THROMBOPLASTIN TIME 31.4 Sec (25.0-35.0)
[2018-02-22 01:27] LABS: ALANINE AMINOTRANSFERASE 35 IU/L (13-69); ALBUMIN 3.3 g/dl (3.3-4.9); ALKALINE PHOSPHATASE 149 IU/L (42-121); ANION GAP 15 (8-16); ASPARTATE AMINO TRANSFERASE 22 IU/L (15-46); BILIRUBIN,INDIRECT 0.6 mg/dl (0-1.1); BILIRUBIN,TOTAL 0.6 mg/dl (0.2-1.3); BLOOD UREA NITROGEN 9 mg/dl (7-20); CALCIUM 9.3 mg/dl (8.4-10.2); CARBON DIOXIDE 27 mmol/L (21-31); CHLORIDE 90 mmol/L (97-110); CREATININE 0.62 mg/dl (0.44-1.00); GLUCOSE 116 mg/dl (70-220); POTASSIUM 3.4 mmol/L (3.5-5.1); SODIUM 129 mmol/L (135-144); TOTAL PROTEIN 6.6 g/dl (6.1-8.1)
[2018-02-22 01:33] LABS: LACTIC ACID 1.2 mmol/L (0.5-2.0)
[2018-02-22 01:36] LABS: ADD UMIC YES; UR AMORPHOUS CRYSTAL FEW /HPF (NONE SEEN); UR ASCORBIC ACID 40 mg/dL (NEGATIVE); UR BACTERIA FEW /HPF (NONE SEEN); UR BILIRUBIN (Dip) NEGATIVE (NEGATIVE); UR BLOOD (Dip) 1+ mg/dL (NEGATIVE); UR CLARITY CLOUDY (CLEAR); UR COLOR AMBER (YELLOW); UR GLUCOSE (Dip) NEGATIVE (NEGATIVE); UR KETONES (Dip) 1+ mg/dL (NEGATIVE); UR LEUKOCYTE ESTERASE (Dip) 3+ Leu/ul (NEGATIVE); UR MUCUS MODERATE /HPF (NONE SEEN); UR NITRITE (Dip) NEGATIVE (NEGATIVE); UR RBC 12 /HPF (0-5); UR SPECIFIC GRAVITY (Dip) 1.018 (1.003-1.030); UR SQUAMOUS EPITHELIAL CELL MODERATE /HPF (FEW); UR TOTAL PROTEIN (Dip) 1+ mg/dl (NEGATIVE); UR UROBILINOGEN (Dip) NEGATIVE (NEGATIVE); UR WBC 42 /HPF (0-5)
[2018-02-22] MEDS: IOHEXOL 300MG/ML 150 ML BTL (01:45)
[2018-02-22] MEDS: SOD CHLORIDE 0.9% 100 ML (01:45)
[2018-02-22 01:46] LABS: TROPONIN-I < 0.010 ng/ml (0.000-0.120)
[2018-02-22] MEDS: PIPER-TAZO 3.375 GM IV (PMX) 100 ML IVPB ×5 (03:00→23:43)
[2018-02-22] MEDS: POTASSIUM CHLORIDE 100 ML IVPB ×3 (03:01→22:52)
[2018-02-22] MEDS: SOD CHLORIDE 0.9% 1,000 ML IV (03:13)
[2018-02-22 03:39] LABS: LACTIC ACID 0.8 mmol/L (0.5-2.0)
[2018-02-22 05:11] LABS: LACTIC ACID 1.1 mmol/L (0.5-2.0)
[2018-02-22] MEDS ORDERED: ONDANSETRON 4 MG INJ IV ×2 (05:30→17:30)
[2018-02-22] MEDS ORDERED: ALBUTEROL/IPRATROPIUM (NEB) 3 ML AMP HHN (05:30)
[2018-02-22] MEDS ORDERED: VANCOMYCIN IV PER PHARMACY XX (05:30)
[2018-02-22] MEDS ORDERED: NACL 0.9% 3 ML SYG IV (05:30)
[2018-02-22] MEDS: morphine 2 MG INJ IV ×4 (05:36→23:42)
[2018-02-22] MEDS: DEXTROSE 5%-0.45% NACL 1,000 ML IV ×2 (05:38→15:03)
[2018-02-22] MEDS ORDERED: FENTAnyl PATCH 12 MCG/HR TRANSDERM (07:00)
[2018-02-22] MEDS: VANCOMYCIN 1 GM 250 ML IVPB (08:26)
[2018-02-22] MEDS: HEPARIN 5,000 UNIT/0.5 ML VIAL SC ×2 (15:33→23:39)
[2018-02-22] MEDS: ONDANSETRON INJ 8 MG in SOD CHLORIDE 0.9% 50 ML IV (16:13)
[2018-02-22] MEDS ORDERED: PENDING SANTYL ORDER FOR WOUND CARE XX (19:00)
[2018-02-22] MEDS: VANCOMYCIN 750 MG in SOD CHLORIDE 0.9% 150 ML IVPB (20:46)
[2018-02-22] MEDS ORDERED: HYOSCYAMINE 0.125 MG SUBL TAB SL (22:00)
[2018-02-23] MEDS: morphine 2 MG INJ IV (03:33)
[2018-02-23] MEDS: DEXTROSE 5%-0.45% NACL 1,000 ML IV ×3 (05:09→21:02)
[2018-02-23] MEDS: PIPER-TAZO 3.375 GM IV (PMX) 100 ML IVPB ×3 (05:09→17:36)
[2018-02-23 06:10] LABS: ADD MAN DIFF? NO
[2018-02-23 06:28] LABS: WHITE BLOOD COUNT 14.1 10^3/ul (4.8-10.8)
[2018-02-23 06:28] LABS: BASOPHILS % 0.2 % (0.0-2.0); EOSINOPHILS % 0.1 % (0.0-7.0); HEMATOCRIT 25.6 % (37.0-47.0); HEMOGLOBIN 8.6 g/dl (12.0-16.0); LYMPHOCYTES % 7.2 % (15.0-51.0); MEAN CORPUSCULAR HEMOGLOBIN 31.3 pg (29.0-33.0); MEAN CORPUSCULAR HGB CONC 33.6 g/dl (32.0-37.0); MEAN CORPUSCULAR VOLUME 93.1 fl (82.0-101.0); MEAN PLATELET VOLUME 10.7 fl (7.4-10.4); MONOCYTE # 0.6 10^3/ul (0.3-0.9); MONOCYTES % 4.5 % (0.0-11.0); NEUTROPHIL # 12.3 10^3/ul (1.6-7.5); NEUTROPHILS % 87.4 % (39.0-77.0); PLATELET COUNT 304 10^3/UL (140-415); RED BLOOD COUNT 2.75 10^6/ul (4.20-5.40); RED CELL DISTRIBUTION WIDTH 14.5 % (11.5-14.5)
[2018-02-23 07:00] LABS: ALANINE AMINOTRANSFERASE 32 IU/L (13-69); ALBUMIN 2.6 g/dl (3.3-4.9); ALBUMIN/GLOBULIN RATIO 0.96; ALKALINE PHOSPHATASE 99 IU/L (42-121); ANION GAP 14 (8-16); ASPARTATE AMINO TRANSFERASE 16 IU/L (15-46); BILIRUBIN,INDIRECT 0.4 mg/dl (0-1.1); BILIRUBIN,TOTAL 0.4 mg/dl (0.2-1.3); BLOOD UREA NITROGEN 10 mg/dl (7-20); CALCIUM 8.7 mg/dl (8.4-10.2); CARBON DIOXIDE 22 mmol/L (21-31); CHLORIDE 100 mmol/L (97-110); CREATININE 0.68 mg/dl (0.44-1.00); GLUCOSE 102 mg/dl (70-220); MAGNESIUM 1.9 mg/dl (1.7-2.5); POTASSIUM 4.5 mmol/L (3.5-5.1); SODIUM 131 mmol/L (135-144); TOTAL PROTEIN 5.3 g/dl (6.1-8.1)
[2018-02-23] MEDS: oxyCODONE 5 MG TAB PO (07:17)
[2018-02-23] MEDS: VANCOMYCIN 750 MG in SOD CHLORIDE 0.9% 150 ML IVPB (08:15)
[2018-02-23] MEDS: HEPARIN 5,000 UNIT/0.5 ML VIAL SC ×2 (08:16→21:38)
[2018-02-23] MEDS ORDERED: BISACODYL 10 MG SUPP PR (10:30)
[2018-02-23] MEDS: morphine LIQ (20 MG/ML PO SYG) SL ×5 (12:29→23:59)
[2018-02-23] MEDS: HYOSCYAMINE 0.125 MG SUBL TAB SL ×4 (14:00→23:10)
[2018-02-23] MEDS: DOCUSATE SODIUM 100 MG CAP PO (17:35)
[2018-02-23] MEDS ORDERED: VANCOMYCIN 750 MG in SOD CHLORIDE 0.9% 150 ML IVPB (20:30)
[2018-02-23] MEDS: VANCOMYCIN 1 GM 250 ML IVPB (22:25)
[2018-02-24] MEDS: PIPER-TAZO 3.375 GM IV (PMX) 100 ML IVPB ×5 (00:45→23:37)
[2018-02-24] MEDS: morphine LIQ (20 MG/ML PO SYG) SL ×6 (02:30→23:37)
[2018-02-24] MEDS: HYOSCYAMINE 0.125 MG SUBL TAB SL ×6 (03:10→23:05)
[2018-02-24] MEDS: ONDANSETRON INJ 8 MG in SOD CHLORIDE 0.9% 50 ML IV (04:22)
[2018-02-24] MEDS: ACETAMINOPHEN 325 MG TAB PO (05:05)
[2018-02-24] MEDS: DEXTROSE 5%-0.45% NACL 1,000 ML IV (06:35)
[2018-02-24 07:37] LABS: ADD MAN DIFF? NO
[2018-02-24 07:40] LABS: WHITE BLOOD COUNT 13.2 10^3/ul (4.8-10.8)
[2018-02-24 07:40] LABS: ABNORMAL IP MESSAGE 1; BASOPHILS % 0.2 % (0.0-2.0); EOSINOPHILS % 0.1 % (0.0-7.0); HEMOGLOBIN 7.6 g/dl (12.0-16.0); LYMPHOCYTES # 0.6 10^3/ul (0.8-2.9); LYMPHOCYTES % 4.5 % (15.0-51.0); MEAN CORPUSCULAR HEMOGLOBIN 30.8 pg (29.0-33.0); MEAN CORPUSCULAR VOLUME 93.1 fl (82.0-101.0); MEAN PLATELET VOLUME 9.9 fl (7.4-10.4); MONOCYTE # 0.6 10^3/ul (0.3-0.9); MONOCYTES % 4.6 % (0.0-11.0); NEUTROPHIL # 11.8 10^3/ul (1.6-7.5); NEUTROPHILS % 89.9 % (39.0-77.0); PLATELET COUNT 291 10^3/UL (140-415); RED BLOOD COUNT 2.47 10^6/ul (4.20-5.40); RED CELL DISTRIBUTION WIDTH 14.6 % (11.5-14.5)
[2018-02-24 07:47] LABS: POSITIVE DIFF @See below
[2018-02-24 08:04] LABS: ANION GAP 9 (8-16); BLOOD UREA NITROGEN 10 mg/dl (7-20); CALCIUM 8.4 mg/dl (8.4-10.2); CARBON DIOXIDE 23 mmol/L (21-31); CHLORIDE 105 mmol/L (97-110); CREATININE 0.69 mg/dl (0.44-1.00); GLUCOSE 120 mg/dl (70-220); POTASSIUM 3.4 mmol/L (3.5-5.1); SODIUM 134 mmol/L (135-144)
[2018-02-24] MEDS: DOCUSATE SODIUM 100 MG CAP PO (09:00)
[2018-02-24] MEDS: HEPARIN 5,000 UNIT/0.5 ML VIAL SC ×2 (09:01→21:02)
[2018-02-24] MEDS: VANCOMYCIN 1 GM 250 ML IVPB ×2 (09:08→20:53)
[2018-02-24] MEDS: SOD CHLORIDE 0.9% 1,000 ML IV (14:32)
[2018-02-24] MEDS: POTASSIUM CHLORIDE (SR) 20 MEQ TAB PO (14:32)
[2018-02-24 19:11] LABS: HEMOGLOBIN 7.9 g/dl (12.0-16.0)
[2018-02-24] MEDS: FENTAnyl PATCH 12 MCG/HR TRANSDERM (22:25)
[2018-02-25] MEDS: HYOSCYAMINE 0.125 MG SUBL TAB SL (03:17)
[2018-02-25] MEDS: SOD CHLORIDE 0.9% 1,000 ML IV ×2 (03:50→06:09)
[2018-02-25] MEDS: morphine LIQ (20 MG/ML PO SYG) SL ×2 (06:04→10:56)
[2018-02-25] MEDS: PIPER-TAZO 3.375 GM IV (PMX) 100 ML IVPB (06:04)
[2018-02-25 07:04] LABS: ADD MAN DIFF? NO
[2018-02-25 07:13] LABS: WHITE BLOOD COUNT 14.1 10^3/ul (4.8-10.8)
[2018-02-25 07:13] LABS: BASOPHILS % 0.2 % (0.0-2.0); EOSINOPHILS # 0.1 10^3/ul (0.0-0.5); EOSINOPHILS % 0.4 % (0.0-7.0); HEMATOCRIT 23.7 % (37.0-47.0); HEMOGLOBIN 7.9 g/dl (12.0-16.0); LYMPHOCYTES # 0.7 10^3/ul (0.8-2.9); LYMPHOCYTES % 5.2 % (15.0-51.0); MEAN CORPUSCULAR HEMOGLOBIN 30.9 pg (29.0-33.0); MEAN CORPUSCULAR HGB CONC 33.3 g/dl (32.0-37.0); MEAN CORPUSCULAR VOLUME 92.6 fl (82.0-101.0); MONOCYTE # 0.6 10^3/ul (0.3-0.9); MONOCYTES % 4.5 % (0.0-11.0); NEUTROPHIL # 12.5 10^3/ul (1.6-7.5); PLATELET COUNT 296 10^3/UL (140-415); RED BLOOD COUNT 2.56 10^6/ul (4.20-5.40); RED CELL DISTRIBUTION WIDTH 14.6 % (11.5-14.5)
[2018-02-25 07:46] LABS: ANION GAP 14 (8-16); BLOOD UREA NITROGEN 8 mg/dl (7-20); CALCIUM 8.6 mg/dl (8.4-10.2); CARBON DIOXIDE 22 mmol/L (21-31); CHLORIDE 102 mmol/L (97-110); CREATININE 0.62 mg/dl (0.44-1.00); GLUCOSE 64 mg/dl (70-220); POTASSIUM 3.4 mmol/L (3.5-5.1); SODIUM 135 mmol/L (135-144)
[2018-02-25] MEDS: VANCOMYCIN 1 GM 250 ML IVPB (08:56)
[2018-02-25] MEDS: VITAMIN A & D 5 GM OINT PACKET TOP (10:56)
[2018-02-25] MEDS: DOCUSATE SODIUM 100 MG CAP PO (13:15)
[2018-02-25] MEDS: HEPARIN 5,000 UNIT/0.5 ML VIAL SC ×2 (13:16→21:06)
[2018-02-25] MEDS: ONDANSETRON INJ 8 MG in SOD CHLORIDE 0.9% 50 ML IV ×2 (14:07→21:03)
[2018-02-25] MEDS ORDERED: ONDANSETRON 4 MG INJ IV (16:00)
[2018-02-25] MEDS ORDERED: PHENYLephrine (100 MCG/ML) 10ML SYG (17:13)
[2018-02-25] MEDS: morphine 2 MG INJ IV ×2 (18:14→21:02)
[2018-02-25] MEDS: ACETAMINOPHEN 325 MG TAB PO (19:58)
[2018-02-25] MEDS: POTASSIUM CHLORIDE 100 ML IVPB (19:58)
[2018-02-26] MEDS: POTASSIUM CHLORIDE 100 ML IVPB (00:39)
[2018-02-26 05:48] LABS: ADD MAN DIFF? NO
[2018-02-26 05:50] LABS: BASOPHILS % 0.2 % (0.0-2.0); EOSINOPHILS # 0.1 10^3/ul (0.0-0.5); EOSINOPHILS % 1.1 % (0.0-7.0); HEMATOCRIT 24.8 % (37.0-47.0); HEMOGLOBIN 8.2 g/dl (12.0-16.0); LYMPHOCYTES # 1.2 10^3/ul (0.8-2.9); LYMPHOCYTES % 9.9 % (15.0-51.0); MEAN CORPUSCULAR HEMOGLOBIN 31.1 pg (29.0-33.0); MEAN CORPUSCULAR HGB CONC 33.1 g/dl (32.0-37.0); MEAN CORPUSCULAR VOLUME 93.9 fl (82.0-101.0); MEAN PLATELET VOLUME 10.2 fl (7.4-10.4); MONOCYTE # 0.9 10^3/ul (0.3-0.9); MONOCYTES % 7.3 % (0.0-11.0); NEUTROPHILS % 80.8 % (39.0-77.0); PLATELET COUNT 365 10^3/UL (140-415); RED BLOOD COUNT 2.64 10^6/ul (4.20-5.40); RED CELL DISTRIBUTION WIDTH 15.1 % (11.5-14.5)
[2018-02-26 05:50] LABS: WHITE BLOOD COUNT 12.3 10^3/ul (4.8-10.8)
[2018-02-26 06:14] LABS: ANION GAP 10 (8-16); BLOOD UREA NITROGEN 10 mg/dl (7-20); CALCIUM 8.8 mg/dl (8.4-10.2); CARBON DIOXIDE 23 mmol/L (21-31); CHLORIDE 109 mmol/L (97-110); CREATININE 0.57 mg/dl (0.44-1.00); GLUCOSE 73 mg/dl (70-220); POTASSIUM 4.3 mmol/L (3.5-5.1); SODIUM 138 mmol/L (135-144)
[2018-02-26] MEDS: morphine 2 MG INJ IV ×4 (07:34→21:39)
[2018-02-26] MEDS: DOCUSATE SODIUM 100 MG CAP PO (09:14)
[2018-02-26] MEDS: HEPARIN 5,000 UNIT/0.5 ML VIAL SC ×2 (09:15→20:49)
[2018-02-27] MEDS: morphine 2 MG INJ IV ×4 (02:05→19:44)
[2018-02-27 06:33] LABS: ADD MAN DIFF? NO
[2018-02-27 06:39] LABS: WHITE BLOOD COUNT 10.6 10^3/ul (4.8-10.8)
[2018-02-27 06:40] LABS: BASOPHILS % 0.3 % (0.0-2.0); EOSINOPHILS # 0.2 10^3/ul (0.0-0.5); EOSINOPHILS % 1.9 % (0.0-7.0); HEMOGLOBIN 8.6 g/dl (12.0-16.0); LYMPHOCYTES # 1.5 10^3/ul (0.8-2.9); LYMPHOCYTES % 14.2 % (15.0-51.0); MEAN CORPUSCULAR HEMOGLOBIN 30.6 pg (29.0-33.0); MEAN CORPUSCULAR HGB CONC 33.1 g/dl (32.0-37.0); MEAN CORPUSCULAR VOLUME 92.5 fl (82.0-101.0); MONOCYTE # 0.9 10^3/ul (0.3-0.9); MONOCYTES % 8.1 % (0.0-11.0); NEUTROPHIL # 7.9 10^3/ul (1.6-7.5); NEUTROPHILS % 74.8 % (39.0-77.0); PLATELET COUNT 398 10^3/UL (140-415); RED BLOOD COUNT 2.81 10^6/ul (4.20-5.40); RED CELL DISTRIBUTION WIDTH 15.1 % (11.5-14.5)
[2018-02-27 07:00] LABS: ANION GAP 13 (8-16); BLOOD UREA NITROGEN 8 mg/dl (7-20); CALCIUM 8.8 mg/dl (8.4-10.2); CARBON DIOXIDE 26 mmol/L (21-31); CHLORIDE 102 mmol/L (97-110); CREATININE 0.53 mg/dl (0.44-1.00); GLUCOSE 96 mg/dl (70-220); POTASSIUM 3.6 mmol/L (3.5-5.1); SODIUM 137 mmol/L (135-144)
[2018-02-27] MEDS: HEPARIN 5,000 UNIT/0.5 ML VIAL SC ×2 (09:00→20:49)
[2018-02-27] MEDS: DOCUSATE SODIUM 100 MG CAP PO (09:00)
[2018-02-27] MEDS: LIDOCAINE 2% (SDV) 5 ML INJ (09:02)
[2018-02-27] MEDS: PROPOFOL 20 ML ×2 (09:02)
[2018-02-27] MEDS: DEXTROSE 50% 50 ML SYRINGE (09:02)
[2018-02-27] MEDS ORDERED: PROPOFOL 20 ML ×2 (16:13→17:29)
[2018-02-27] MEDS ORDERED: FENTAnyl 50 MCG/ML VIAL (16:13)
[2018-02-27] MEDS ORDERED: MIDAZOLAM 1 MG/ML 2 ML INJ ×2 (16:13→17:10)
[2018-02-27] MEDS ORDERED: OXYCODONE/ACETAMINOPHEN (5/325) TAB PO (16:30)
[2018-02-27] MEDS ORDERED: HYDROmorphONE 1 MG/5 ML IV SYRINGE IV (16:30)
[2018-02-27] MEDS: HYDROmorphONE 1 MG/5 ML IV SYRINGE IV ×2 (17:59→18:29)
[2018-02-27] MEDS: ONDANSETRON INJ 8 MG in SOD CHLORIDE 0.9% 50 ML IV (20:35)
[2018-02-27] MEDS: FENTAnyl PATCH 12 MCG/HR TRANSDERM (21:41)
[2018-02-28] MEDS: morphine 2 MG INJ IV ×5 (00:27→16:03)
[2018-02-28 06:13] LABS: ADD MAN DIFF? NO
[2018-02-28 06:28] LABS: WHITE BLOOD COUNT 12.4 10^3/ul (4.8-10.8)
[2018-02-28 06:28] LABS: BASOPHILS % 0.2 % (0.0-2.0); EOSINOPHILS % 0.2 % (0.0-7.0); HEMATOCRIT 25.7 % (37.0-47.0); HEMOGLOBIN 8.6 g/dl (12.0-16.0); LYMPHOCYTES # 1.2 10^3/ul (0.8-2.9); MEAN CORPUSCULAR HEMOGLOBIN 30.8 pg (29.0-33.0); MEAN CORPUSCULAR HGB CONC 33.5 g/dl (32.0-37.0); MEAN CORPUSCULAR VOLUME 92.1 fl (82.0-101.0); MEAN PLATELET VOLUME 10.1 fl (7.4-10.4); MONOCYTE # 0.8 10^3/ul (0.3-0.9); MONOCYTES % 6.1 % (0.0-11.0); NEUTROPHIL # 10.2 10^3/ul (1.6-7.5); NEUTROPHILS % 82.4 % (39.0-77.0); PLATELET COUNT 463 10^3/UL (140-415); RED BLOOD COUNT 2.79 10^6/ul (4.20-5.40)
[2018-02-28 06:49] LABS: ANION GAP 15 (8-16); BLOOD UREA NITROGEN 9 mg/dl (7-20); CALCIUM 9.1 mg/dl (8.4-10.2); CARBON DIOXIDE 24 mmol/L (21-31); CHLORIDE 105 mmol/L (97-110); CREATININE 0.56 mg/dl (0.44-1.00); GLUCOSE 80 mg/dl (70-220); POTASSIUM 3.7 mmol/L (3.5-5.1); SODIUM 140 mmol/L (135-144)
[2018-02-28] MEDS: DOCUSATE SODIUM 100 MG CAP PO (09:13)
[2018-02-28] MEDS: HEPARIN 5,000 UNIT/0.5 ML VIAL SC ×2 (11:15→20:02)
[2018-02-28] MEDS: morphine LIQ (10 MG/5 ML) CUP PO (19:46)
[2018-03-01] MEDS: morphine LIQ (10 MG/5 ML) CUP PO ×2 (02:05→08:06)
[2018-03-01] MEDS: morphine 2 MG INJ IV ×4 (04:41→21:16)
[2018-03-01] MEDS: DOCUSATE SODIUM 100 MG CAP PO (08:06)
[2018-03-01] MEDS: HEPARIN 5,000 UNIT/0.5 ML VIAL SC ×2 (08:08→21:17)
[2018-03-01] MEDS: HYDROmorphONE 2 MG TAB PO (11:22)
[2018-03-01] MEDS: ONDANSETRON (ODT) 4 MG TAB ODT ×2 (14:01→22:42)
[2018-03-02] MEDS: morphine 2 MG INJ IV ×6 (00:36→23:31)
[2018-03-02] MEDS: DOCUSATE SODIUM 100 MG CAP PO (09:42)
[2018-03-02] MEDS: HEPARIN 5,000 UNIT/0.5 ML VIAL SC ×2 (09:42→20:29)
[2018-03-02] MEDS: FENTAnyl PATCH 12 MCG/HR TRANSDERM (21:34)
[2018-03-03] MEDS: morphine 2 MG INJ IV ×6 (02:58→21:37)
[2018-03-03] MEDS: ONDANSETRON (ODT) 4 MG TAB ODT (02:58)
[2018-03-03] MEDS: DOCUSATE SODIUM 100 MG CAP PO (09:22)
[2018-03-03] MEDS: HEPARIN 5,000 UNIT/0.5 ML VIAL SC ×2 (09:23→20:50)
[2018-03-03] MEDS: DIATR MEGLU/DIATRIZOATE SODIUM 120 ML BTL ×3 (10:20)
[2018-03-03] MEDS: METOCLOPRAMIDE (1 MG/ML) 10 ML CUP PO ×2 (15:53→18:12)
[2018-03-04] MEDS: METOCLOPRAMIDE (1 MG/ML) 10 ML CUP PO ×5 (00:20→23:48)
[2018-03-04] MEDS: morphine 2 MG INJ IV ×5 (01:27→14:37)
[2018-03-04] MEDS: DOCUSATE SODIUM 100 MG CAP PO (08:18)
[2018-03-04] MEDS: HEPARIN 5,000 UNIT/0.5 ML VIAL SC ×2 (08:19→22:23)
[2018-03-04] MEDS ORDERED: ONDANSETRON INJ 8 MG in DEXTROSE 5% 50 ML IV (18:00)
[2018-03-04] MEDS ORDERED: TRIMETHOBENZAMIDE 100 MG/ML VIAL IM (18:00)
[2018-03-04] MEDS: HYDROmorphONE 4 MG TAB PO ×2 (18:07→22:22)
[2018-03-05] MEDS: HYDROmorphONE 4 MG TAB PO ×4 (04:18→20:17)
[2018-03-05] MEDS: METOCLOPRAMIDE (1 MG/ML) 10 ML CUP PO ×4 (05:16→23:27)
[2018-03-05 05:38] LABS: ADD MAN DIFF? NO
[2018-03-05 05:43] LABS: WHITE BLOOD COUNT 11.7 10^3/ul (4.8-10.8)
[2018-03-05 05:43] LABS: BASOPHILS % 0.3 % (0.0-2.0); EOSINOPHILS # 0.2 10^3/ul (0.0-0.5); EOSINOPHILS % 1.4 % (0.0-7.0); HEMATOCRIT 26.1 % (37.0-47.0); HEMOGLOBIN 8.3 g/dl (12.0-16.0); LYMPHOCYTES # 1.7 10^3/ul (0.8-2.9); LYMPHOCYTES % 14.5 % (15.0-51.0); MEAN CORPUSCULAR HEMOGLOBIN 30.3 pg (29.0-33.0); MEAN CORPUSCULAR HGB CONC 31.8 g/dl (32.0-37.0); MEAN CORPUSCULAR VOLUME 95.3 fl (82.0-101.0); MONOCYTE # 0.6 10^3/ul (0.3-0.9); MONOCYTES % 5.5 % (0.0-11.0); NEUTROPHILS % 77.1 % (39.0-77.0); PLATELET COUNT 469 10^3/UL (140-415); RED BLOOD COUNT 2.74 10^6/ul (4.20-5.40); RED CELL DISTRIBUTION WIDTH 15.7 % (11.5-14.5)
[2018-03-05 06:02] LABS: ANION GAP 12 (8-16); BLOOD UREA NITROGEN 18 mg/dl (7-20); CALCIUM 9.1 mg/dl (8.4-10.2); CARBON DIOXIDE 33 mmol/L (21-31); CHLORIDE 99 mmol/L (97-110); CREATININE 0.51 mg/dl (0.44-1.00); GLUCOSE 109 mg/dl (70-220); POTASSIUM 3.7 mmol/L (3.5-5.1); SODIUM 140 mmol/L (135-144)
[2018-03-05 06:15] LABS: MAGNESIUM 2.3 mg/dl (1.7-2.5)
[2018-03-05] MEDS: DOCUSATE SODIUM 100 MG CAP PO (08:38)
[2018-03-05] MEDS: HEPARIN 5,000 UNIT/0.5 ML VIAL SC ×2 (08:40→20:16)
[2018-03-05] MEDS: FENTAnyl PATCH 12 MCG/HR TRANSDERM (23:20)
[2018-03-06] MEDS: HYDROmorphONE 4 MG TAB PO ×3 (01:29→11:00)
[2018-03-06] MEDS: METOCLOPRAMIDE (1 MG/ML) 10 ML CUP PO ×2 (05:38→11:00)
[2018-03-06] MEDS: DOCUSATE SODIUM 100 MG CAP PO (08:34)
[2018-03-06] MEDS: HEPARIN 5,000 UNIT/0.5 ML VIAL SC (08:35)
== END 2018-03-06 13:53 | disposition home health service (06) | DRG 872 ==
LOC: E/R 23:17 → PP2 02-22 03:06 → MS4 02-22 10:47
PROC: 0DB58ZX Excision of Esophagus, Via Natural or Artificial Opening Endoscopic, Diagnostic (ICD-10-PCS; principal; 2018-02-25 15:05)
DX: A41.9 Sepsis, unspecified organism (principal); E87.1 Hypo-osmolality and hyponatremia; N39.0 Urinary tract infection, site not specified; K31.5 Obstruction of duodenum; C24.9 Malignant neoplasm of biliary tract, unspecified; K31.1 Adult hypertrophic pyloric stenosis; E86.0 Dehydration; E87.6 Hypokalemia; K76.0 Fatty (change of) liver, not elsewhere classified; Z51.5 Encounter for palliative care; R13.10 Dysphagia, unspecified; K26.9 Duodenal ulcer, unspecified as acute or chronic, without hemorrhage or perforation; D64.89 Other specified anemias; K20.9 Esophagitis, unspecified; K29.70 Gastritis, unspecified, without bleeding
CPT/HCPCS: 36415; 71045; 74177; 74250; 74330; 80048; 80053; 80202; 81001; 82962; 83605; 83735; 84100; 84484; 85014; 85018; 85025; 85610; 85730; 87040; 87081; 87086; 88305; 88312; 88313; 92610; 93005; 96361; 96374; 96375; 97116; 97162; 99285-25

== ENCOUNTER 2018-04-29 00:59 | Inpatient (IN) | payer OTHER ==
[2018-04-29] MEDS: SOD CHLORIDE 0.9% 500 ML IV ×3 (01:54→08:59)
[2018-04-29] MEDS: ONDANSETRON 4 MG INJ IV ×4 (01:54→20:21)
[2018-04-29 01:55] LABS: ADD MAN DIFF? NO
[2018-04-29] MEDS: morphine 2 MG INJ IV (01:55)
[2018-04-29 01:57] LABS: WHITE BLOOD COUNT 10.2 10^3/ul (4.8-10.8)
[2018-04-29 01:57] LABS: ABNORMAL IP MESSAGE 1; BASOPHILS % 0.2 % (0.0-2.0); HEMATOCRIT 28.8 % (37.0-47.0); HEMOGLOBIN 9.4 g/dl (12.0-16.0); LYMPHOCYTES # 0.5 10^3/ul (0.8-2.9); LYMPHOCYTES % 4.9 % (15.0-51.0); MEAN CORPUSCULAR HEMOGLOBIN 31.5 pg (29.0-33.0); MEAN CORPUSCULAR HGB CONC 32.6 g/dl (32.0-37.0); MEAN CORPUSCULAR VOLUME 96.6 fl (82.0-101.0); MEAN PLATELET VOLUME 8.9 fl (7.4-10.4); MONOCYTE # 0.6 10^3/ul (0.3-0.9); MONOCYTES % 5.7 % (0.0-11.0); NEUTROPHILS % 88.7 % (39.0-77.0); PLATELET COUNT 351 10^3/UL (140-415); RED BLOOD COUNT 2.98 10^6/ul (4.20-5.40); RED CELL DISTRIBUTION WIDTH 17.4 % (11.5-14.5)
[2018-04-29 02:24] LABS: POSITIVE DIFF @See below
[2018-04-29 02:27] LABS: ALANINE AMINOTRANSFERASE 22 IU/L (13-69); ALBUMIN 2.6 g/dl (3.3-4.9); ALBUMIN/GLOBULIN RATIO 0.96; ALKALINE PHOSPHATASE 73 IU/L (42-121); ANION GAP 14 (8-16); ASPARTATE AMINO TRANSFERASE 27 IU/L (15-46); BILIRUBIN,INDIRECT 0.1 mg/dl (0-1.1); BILIRUBIN,TOTAL 0.1 mg/dl (0.2-1.3); BLOOD UREA NITROGEN 18 mg/dl (7-20); CALCIUM 8.7 mg/dl (8.4-10.2); CARBON DIOXIDE 24 mmol/L (21-31); CHLORIDE 97 mmol/L (97-110); CREATININE 0.58 mg/dl (0.44-1.00); GLUCOSE 90 mg/dl (70-220); POTASSIUM 3.1 mmol/L (3.5-5.1); SODIUM 132 mmol/L (135-144); TOTAL PROTEIN 5.3 g/dl (6.1-8.1)
[2018-04-29 02:37] LABS: LIPASE < 10 U/L (23-300)
[2018-04-29 02:39] LABS: TROPONIN-I < 0.012 ng/ml (0.000-0.120)
[2018-04-29 03:05] LABS: ADD UMIC YES; UR ASCORBIC ACID 40 mg/dL (NEGATIVE); UR BACTERIA FEW /HPF (NONE SEEN); UR BILIRUBIN (Dip) NEGATIVE (NEGATIVE); UR BLOOD (Dip) NEGATIVE (NEGATIVE); UR CALCIUM OXALATE CRYSTAL MODERATE /HPF (NONE SEEN); UR CLARITY CLEAR (CLEAR); UR COLOR YELLOW (YELLOW); UR GLUCOSE (Dip) NEGATIVE (NEGATIVE); UR KETONES (Dip) 2+ mg/dL (NEGATIVE); UR LEUKOCYTE ESTERASE (Dip) 2+ Leu/ul (NEGATIVE); UR NITRITE (Dip) NEGATIVE (NEGATIVE); UR RBC 2 /HPF (0-5); UR SPECIFIC GRAVITY (Dip) > 1.060 (1.003-1.030); UR SQUAMOUS EPITHELIAL CELL FEW /HPF (FEW); UR TOTAL PROTEIN (Dip) NEGATIVE (NEGATIVE); UR UROBILINOGEN (Dip) NEGATIVE (NEGATIVE); UR WBC 9 /HPF (0-5)
[2018-04-29] MEDS ORDERED: oxyCODONE 5 MG TAB PO (03:30)
[2018-04-29] MEDS ORDERED: BISACODYL (EC) 5 MG TAB PO ×2 (03:30→09:00)
[2018-04-29] MEDS ORDERED: NACL 0.9% 3 ML SYG IV (03:30)
[2018-04-29] MEDS ORDERED: DOCUSATE SODIUM 100 MG CAP PO (03:30)
[2018-04-29] MEDS: CEFTRIAXONE 1 GM/50 ML (PMX) 50 ML IVPB (03:49)
[2018-04-29] MEDS: HYDROmorphONE 0.5 MG/0.5 ML SYG IV (03:49)
[2018-04-29] MEDS: ALBUMIN HUMAN 25% 100 ML IV (04:52)
[2018-04-29] MEDS: PANTOPRAZOLE (EC) 40 MG TAB PO ×2 (06:27→18:07)
[2018-04-29] MEDS ORDERED: AL HYDROX/MG HYDROX/SIMETH 30 ML CUP PO (06:30)
[2018-04-29 06:41] LABS: INR 1.22; PROTIME 15.6 Sec (11.9-14.9); PT RATIO 1.2
[2018-04-29 06:42] LABS: PARTIAL THROMBOPLASTIN TIME 25.8 Sec (25.0-35.0)
[2018-04-29] MEDS: FENTAnyl PATCH 12 MCG/HR TRANSDERM (07:01)
[2018-04-29] MEDS: DOCUSATE SODIUM 100 MG CAP PO (08:03)
[2018-04-29] MEDS: LIDOCAINE/MYLANTA 40 ML BTL PO (08:03)
[2018-04-29] MEDS: POTASSIUM CHLORIDE (SR) 20 MEQ TAB PO ×2 (08:04→20:22)
[2018-04-29] MEDS: HYDROmorphONE 1 MG/ML SYG IV ×2 (08:04→12:02)
[2018-04-29] MEDS: HYDROmorphONE 2 MG/ML SYG IV (13:03)
[2018-04-29] MEDS ORDERED: HYDROmorphONE 2 MG/ML SYG IV ×2 (13:30→18:30)
[2018-04-29] MEDS: HYDROmorphONE 0.2 MG/ML PCA IV (14:11)
[2018-04-29] MEDS: MEROPENEM 1 GM/50ML(PMX) 50 ML IVPB ×2 (17:16→22:33)
[2018-04-29] MEDS ORDERED: OXYCODONE/ACETAMINOPHEN (10/325) TAB PO (18:30)
[2018-04-29] MEDS: SOD CHLORIDE 0.9% 1,000 ML IV ×2 (18:40→20:21)
[2018-04-29] MEDS: ACETAMINOPHEN 325 MG TAB PO (22:43)
[2018-04-30] MEDS: KETOROLAC 30 MG INJ IV (02:23)
[2018-04-30] MEDS: MEROPENEM 1 GM/50ML(PMX) 50 ML IVPB ×3 (05:17→22:40)
[2018-04-30] MEDS: PANTOPRAZOLE (EC) 40 MG TAB PO ×2 (05:17→18:15)
[2018-04-30] MEDS ORDERED: HYDROmorphONE 2 MG/ML SYG IV (06:30)
[2018-04-30 07:16] LABS: ADD MAN DIFF? NO
[2018-04-30 07:23] LABS: WHITE BLOOD COUNT 6.6 10^3/ul (4.8-10.8)
[2018-04-30 07:23] LABS: ABNORMAL IP MESSAGE 1; BASOPHILS % 0.2 % (0.0-2.0); EOSINOPHILS % 0.3 % (0.0-7.0); HEMATOCRIT 22.7 % (37.0-47.0); HEMOGLOBIN 7.6 g/dl (12.0-16.0); LYMPHOCYTES # 0.3 10^3/ul (0.8-2.9); LYMPHOCYTES % 4.7 % (15.0-51.0); MEAN CORPUSCULAR HEMOGLOBIN 32.5 pg (29.0-33.0); MEAN CORPUSCULAR HGB CONC 33.5 g/dl (32.0-37.0); MEAN PLATELET VOLUME 9.1 fl (7.4-10.4); MONOCYTE # 0.4 10^3/ul (0.3-0.9); MONOCYTES % 5.8 % (0.0-11.0); NEUTROPHIL # 5.8 10^3/ul (1.6-7.5); NEUTROPHILS % 88.5 % (39.0-77.0); PLATELET COUNT 235 10^3/UL (140-415); RED BLOOD COUNT 2.34 10^6/ul (4.20-5.40); RED CELL DISTRIBUTION WIDTH 17.8 % (11.5-14.5)
[2018-04-30] MEDS: HYDROmorphONE 0.2 MG/ML PCA IV (07:36)
[2018-04-30 07:42] LABS: ALANINE AMINOTRANSFERASE 26 IU/L (13-69); ALBUMIN/GLOBULIN RATIO 0.86; ALKALINE PHOSPHATASE 54 IU/L (42-121); ANION GAP 7 (8-16); ASPARTATE AMINO TRANSFERASE 22 IU/L (15-46); BILIRUBIN,INDIRECT 0.1 mg/dl (0-1.1); BILIRUBIN,TOTAL 0.1 mg/dl (0.2-1.3); BLOOD UREA NITROGEN 13 mg/dl (7-20); CALCIUM 8.3 mg/dl (8.4-10.2); CARBON DIOXIDE 24 mmol/L (21-31); CHLORIDE 107 mmol/L (97-110); CREATININE 0.56 mg/dl (0.44-1.00); GLUCOSE 72 mg/dl (70-220); POTASSIUM 4.3 mmol/L (3.5-5.1); SODIUM 134 mmol/L (135-144); TOTAL PROTEIN 4.3 g/dl (6.1-8.1)
[2018-04-30 07:45] LABS: MAGNESIUM 1.9 mg/dl (1.7-2.5)
[2018-04-30 07:54] LABS: POSITIVE DIFF @See below
[2018-04-30] MEDS: SOD CHLORIDE 0.9% 1,000 ML IV (08:53)
[2018-04-30] MEDS: DOCUSATE SODIUM 100 MG CAP PO (08:53)
[2018-04-30] MEDS ORDERED: METHADONE (1 MG/1 ML PO SYG) PO (09:00)
[2018-04-30 11:44] LABS: HEMATOCRIT 21.9 % (37.0-47.0); HEMOGLOBIN 7.3 g/dl (12.0-16.0)
[2018-04-30] MEDS: SOD CHLORIDE 0.9% 250 ML IV* (13:12)
[2018-04-30] MEDS: BISACODYL (EC) 5 MG TAB PO (16:17)
[2018-04-30 17:01] LABS: OCCULT BLOOD STOOL POSITIVE (NEGATIVE)
[2018-04-30] MEDS: POLYETHYLENE GLYCOL 3350 119 GM POWDER PO (18:09)
[2018-04-30] MEDS: MAGNESIUM CITRATE 300 ML BTL PO (18:36)
[2018-05-01] MEDS: SOD CHLORIDE 0.9% 1,000 ML IV ×3 (00:05→14:24)
[2018-05-01 04:06] LABS: IMMEDIATE SPIN CROSSMATCH 1 2
[2018-05-01] MEDS: POLYETHYLENE GLYCOL 3350 119 GM POWDER PO (05:56)
[2018-05-01] MEDS: PANTOPRAZOLE (EC) 40 MG TAB PO ×3 (05:56→18:15)
[2018-05-01] MEDS: MEROPENEM 1 GM/50ML(PMX) 50 ML IVPB ×3 (05:56→21:56)
[2018-05-01] MEDS: ONDANSETRON 4 MG INJ IV ×2 (06:06→21:53)
[2018-05-01 07:44] LABS: ADD MAN DIFF? NO
[2018-05-01 07:56] LABS: ABNORMAL IP MESSAGE 1; BASOPHILS % 0.3 % (0.0-2.0); EOSINOPHILS # 0.1 10^3/ul (0.0-0.5); EOSINOPHILS % 0.8 % (0.0-7.0); HEMATOCRIT 36.6 % (37.0-47.0); HEMOGLOBIN 12.2 g/dl (12.0-16.0); LYMPHOCYTES # 0.4 10^3/ul (0.8-2.9); LYMPHOCYTES % 6.7 % (15.0-51.0); MEAN CORPUSCULAR HGB CONC 33.3 g/dl (32.0-37.0); MEAN CORPUSCULAR VOLUME 92.9 fl (82.0-101.0); MEAN PLATELET VOLUME 9.7 fl (7.4-10.4); MONOCYTE # 0.4 10^3/ul (0.3-0.9); MONOCYTES % 6.7 % (0.0-11.0); NEUTROPHIL # 5.3 10^3/ul (1.6-7.5); NEUTROPHILS % 84.5 % (39.0-77.0); PLATELET COUNT 245 10^3/UL (140-415); RED BLOOD COUNT 3.94 10^6/ul (4.20-5.40)
[2018-05-01 07:56] LABS: WHITE BLOOD COUNT 6.3 10^3/ul (4.8-10.8)
[2018-05-01 08:02] LABS: POSITIVE DIFF @See below
[2018-05-01 08:04] LABS: ALANINE AMINOTRANSFERASE 21 IU/L (13-69); ALBUMIN 2.1 g/dl (3.3-4.9); ALBUMIN/GLOBULIN RATIO 0.87; ALKALINE PHOSPHATASE 58 IU/L (42-121); ANION GAP 7 (8-16); ASPARTATE AMINO TRANSFERASE 26 IU/L (15-46); BILIRUBIN,INDIRECT 1.1 mg/dl (0-1.1); BILIRUBIN,TOTAL 1.1 mg/dl (0.2-1.3); BLOOD UREA NITROGEN 11 mg/dl (7-20); CALCIUM 8.4 mg/dl (8.4-10.2); CARBON DIOXIDE 24 mmol/L (21-31); CHLORIDE 108 mmol/L (97-110); CREATININE 0.45 mg/dl (0.44-1.00); GLUCOSE 94 mg/dl (70-220); POTASSIUM 4.1 mmol/L (3.5-5.1); SODIUM 135 mmol/L (135-144); TOTAL PROTEIN 4.5 g/dl (6.1-8.1)
[2018-05-01 08:05] LABS: MAGNESIUM 2.1 mg/dl (1.7-2.5)
[2018-05-01 08:05] LABS: PHOSPHORUS 1.7 mg/dl (2.5-4.9)
[2018-05-01] MEDS: BISACODYL (EC) 5 MG TAB PO (08:10)
[2018-05-01] MEDS: DOCUSATE SODIUM 100 MG CAP PO (08:11)
[2018-05-01 08:15] LABS: PROTIME 14.4 Sec (11.9-14.9); PT RATIO 1.1
[2018-05-01] MEDS: HYDROmorphONE 0.5 MG/0.5 ML SYG IV ×2 (10:06→18:17)
[2018-05-01] MEDS: PROPOFOL 20 ML (16:50)
[2018-05-01] MEDS: FENTAnyl 50 MCG/ML VIAL (16:50)
[2018-05-01] MEDS: SODIUM PHOSPHATE 15 MMOL in SOD CHLORIDE 0.9% 250 ML IVPB (18:15)
[2018-05-01] MEDS: DEXTROSE 5%-0.45% NACL 1,000 ML IV (18:15)
[2018-05-02] MEDS: DEXTROSE 5%-0.45% NACL 1,000 ML IV ×2 (04:00→15:10)
[2018-05-02] MEDS: HYDROmorphONE 0.2 MG/ML PCA IV (04:12)
[2018-05-02] MEDS: MEROPENEM 1 GM/50ML(PMX) 50 ML IVPB (05:08)
[2018-05-02] MEDS: PANTOPRAZOLE (EC) 40 MG TAB PO ×2 (05:08→18:00)
[2018-05-02] MEDS: HYDROmorphONE 0.5 MG/0.5 ML SYG IV ×2 (07:14→22:34)
[2018-05-02 08:02] LABS: ADD MAN DIFF? NO
[2018-05-02 08:17] LABS: ABNORMAL IP MESSAGE 1; BASOPHILS % 0.7 % (0.0-2.0); EOSINOPHILS # 0.1 10^3/ul (0.0-0.5); EOSINOPHILS % 3.3 % (0.0-7.0); HEMATOCRIT 33.1 % (37.0-47.0); HEMOGLOBIN 11.1 g/dl (12.0-16.0); LYMPHOCYTES # 0.4 10^3/ul (0.8-2.9); LYMPHOCYTES % 9.5 % (15.0-51.0); MEAN CORPUSCULAR HEMOGLOBIN 30.7 pg (29.0-33.0); MEAN CORPUSCULAR HGB CONC 33.5 g/dl (32.0-37.0); MEAN CORPUSCULAR VOLUME 91.4 fl (82.0-101.0); MEAN PLATELET VOLUME 10.1 fl (7.4-10.4); MONOCYTE # 0.3 10^3/ul (0.3-0.9); MONOCYTES % 7.1 % (0.0-11.0); NEUTROPHIL # 3.3 10^3/ul (1.6-7.5); NEUTROPHILS % 78.5 % (39.0-77.0); PLATELET COUNT 198 10^3/UL (140-415); RED BLOOD COUNT 3.62 10^6/ul (4.20-5.40); RED CELL DISTRIBUTION WIDTH 18.8 % (11.5-14.5)
[2018-05-02 08:17] LABS: WHITE BLOOD COUNT 4.2 10^3/ul (4.8-10.8)
[2018-05-02] MEDS: DOCUSATE SODIUM 100 MG CAP PO ×3 (08:17→21:00)
[2018-05-02 08:28] LABS: POSITIVE DIFF @See below
[2018-05-02 08:42] LABS: ANION GAP 2 (8-16); BLOOD UREA NITROGEN 7 mg/dl (7-20); CALCIUM 7.9 mg/dl (8.4-10.2); CARBON DIOXIDE 25 mmol/L (21-31); CHLORIDE 107 mmol/L (97-110); CREATININE 0.38 mg/dl (0.44-1.00); GLUCOSE 84 mg/dl (70-220); MAGNESIUM 1.8 mg/dl (1.7-2.5); PHOSPHORUS 2.1 mg/dl (2.5-4.9); POTASSIUM 3.2 mmol/L (3.5-5.1); SODIUM 131 mmol/L (135-144)
[2018-05-02] MEDS: POTASSIUM CHLORIDE 20 MEQ POWDER FOR ORAL SOLN PO (13:06)
[2018-05-02] MEDS: HYDROmorphONE 2 MG TAB PO ×3 (15:09→21:27)
[2018-05-02] MEDS: ONDANSETRON 4 MG INJ IV (17:53)
[2018-05-03] MEDS: ONDANSETRON 4 MG INJ IV ×2 (00:16→12:56)
[2018-05-03] MEDS: HYDROmorphONE 2 MG TAB PO ×3 (03:45→12:03)
[2018-05-03 05:00] LABS: ADD MAN DIFF? NO
[2018-05-03 05:07] LABS: WHITE BLOOD COUNT 4.3 10^3/ul (4.8-10.8)
[2018-05-03 05:07] LABS: ABNORMAL IP MESSAGE 1; BASOPHILS % 0.5 % (0.0-2.0); EOSINOPHILS # 0.2 10^3/ul (0.0-0.5); EOSINOPHILS % 4.4 % (0.0-7.0); HEMATOCRIT 31.5 % (37.0-47.0); HEMOGLOBIN 10.6 g/dl (12.0-16.0); LYMPHOCYTES # 0.5 10^3/ul (0.8-2.9); LYMPHOCYTES % 11.5 % (15.0-51.0); MEAN CORPUSCULAR HEMOGLOBIN 30.8 pg (29.0-33.0); MEAN CORPUSCULAR HGB CONC 33.7 g/dl (32.0-37.0); MEAN CORPUSCULAR VOLUME 91.6 fl (82.0-101.0); MEAN PLATELET VOLUME 9.5 fl (7.4-10.4); MONOCYTE # 0.5 10^3/ul (0.3-0.9); MONOCYTES % 10.4 % (0.0-11.0); NEUTROPHIL # 3.2 10^3/ul (1.6-7.5); NEUTROPHILS % 72.7 % (39.0-77.0); PLATELET COUNT 204 10^3/UL (140-415); RED BLOOD COUNT 3.44 10^6/ul (4.20-5.40); RED CELL DISTRIBUTION WIDTH 18.4 % (11.5-14.5)
[2018-05-03 05:24] LABS: POSITIVE DIFF @See below
[2018-05-03] MEDS: DEXTROSE 5%-0.45% NACL 1,000 ML IV (05:35)
[2018-05-03 05:42] LABS: ANION GAP 5 (8-16); BLOOD UREA NITROGEN 4 mg/dl (7-20); CALCIUM 7.9 mg/dl (8.4-10.2); CARBON DIOXIDE 29 mmol/L (21-31); CHLORIDE 102 mmol/L (97-110); CREATININE 0.46 mg/dl (0.44-1.00); GLUCOSE 90 mg/dl (70-220); MAGNESIUM 1.7 mg/dl (1.7-2.5); PHOSPHORUS 1.8 mg/dl (2.5-4.9); POTASSIUM 3.4 mmol/L (3.5-5.1); SODIUM 133 mmol/L (135-144)
[2018-05-03] MEDS: PANTOPRAZOLE (EC) 40 MG TAB PO (06:42)
[2018-05-03] MEDS: DOCUSATE SODIUM 100 MG CAP PO (09:00)
== END 2018-05-03 14:40 | disposition hospice, home (50) | DRG 435 ==
LOC: E/R 00:59 → 2NE 03:22
PROC: 0DJD8ZZ Inspection of Lower Intestinal Tract, Via Natural or Artificial Opening Endoscopic (ICD-10-PCS; principal; 2018-05-01 15:30)
PROC: 30233N1 Transfusion of Nonautologous Red Blood Cells into Peripheral Vein, Percutaneous Approach (ICD-10-PCS; 2018-05-01 15:30)
DX: C22.1 Intrahepatic bile duct carcinoma (principal); E43 Unspecified severe protein-calorie malnutrition; R18.8 Other ascites; N39.0 Urinary tract infection, site not specified; Z68.1 Body mass index [BMI] 19.9 or less, adult; K92.1 Melena; F41.9 Anxiety disorder, unspecified; D64.9 Anemia, unspecified; Z96.89 Presence of other specified functional implants; Z92.3 Personal history of irradiation; K57.90 Diverticulosis of intestine, part unspecified, without perforation or abscess without bleeding; K64.8 Other hemorrhoids; Z51.5 Encounter for palliative care
CPT/HCPCS: 36415; 36430; 71045; 74176; 76705; 80048; 80053; 81001; 82270; 83690; 83735; 84100; 84484; 85014; 85018; 85025; 85610; 85730; 86850; 86900; 86901; 86920; 87040; 87086; 93005; 96374; 96375; 99285-25

== ENCOUNTER → 2019-01-09 | Outpatient (CLI) | payer OTHER ==
[~2019-01-09] MED LIST: IOHEXOL 300MG/ML 150 ML BTL; SOD CHLORIDE 0.9% 100 ML
== END | disposition home or self-care (01) ==
LOC: C/S 12:52
DX: Z85.038 Personal history of other malignant neoplasm of large intestine (principal)
CPT/HCPCS: 74178

== ENCOUNTER 2019-01-22 11:40 | Inpatient (IN) | payer OTHER ==
[2019-01-22 14:06] LABS: ADD MAN DIFF? NO
[2019-01-22 14:10] LABS: ABNORMAL IP MESSAGE 1; BASOPHILS % 0.2 % (0.0-2.0); EOSINOPHILS # 0.1 10^3/ul (0.0-0.5); EOSINOPHILS % 1.1 % (0.0-7.0); HEMATOCRIT 23.7 % (37.0-47.0); HEMOGLOBIN 7.8 g/dl (12.0-16.0); LYMPHOCYTES # 0.3 10^3/ul (0.8-2.9); LYMPHOCYTES % 5.6 % (15.0-51.0); MEAN CORPUSCULAR HEMOGLOBIN 29.1 pg (29.0-33.0); MEAN CORPUSCULAR HGB CONC 32.9 g/dl (32.0-37.0); MEAN CORPUSCULAR VOLUME 88.4 fl (82.0-101.0); MEAN PLATELET VOLUME 9.6 fl (7.4-10.4); MONOCYTE # 0.6 10^3/ul (0.3-0.9); MONOCYTES % 10.1 % (0.0-11.0); NEUTROPHIL # 4.7 10^3/ul (1.6-7.5); NEUTROPHILS % 82.6 % (39.0-77.0); PLATELET COUNT 310 10^3/UL (140-415); RED BLOOD COUNT 2.68 10^6/ul (4.20-5.40); RED CELL DISTRIBUTION WIDTH 14.2 % (11.5-14.5)
[2019-01-22 14:10] LABS: WHITE BLOOD COUNT 5.7 10^3/ul (4.8-10.8)
[2019-01-22 14:13] LABS: POSITIVE DIFF @See below
[2019-01-22] MEDS: ONDANSETRON 4 MG INJ IV (14:19)
[2019-01-22] MEDS: morphine 4 MG/ML VIAL IV (14:20)
[2019-01-22 14:29] LABS: INR 1.13; PROTIME 14.6 Sec (11.9-14.9); PT RATIO 1.1
[2019-01-22 14:30] LABS: PARTIAL THROMBOPLASTIN TIME 30.8 Sec (23.0-35.0)
[2019-01-22 14:32] LABS: ALANINE AMINOTRANSFERASE 21 IU/L (13-69); ALBUMIN 3.1 g/dl (3.3-4.9); ALBUMIN/GLOBULIN RATIO 0.96; ALKALINE PHOSPHATASE 236 IU/L (42-121); ANION GAP 4 (5-13); ASPARTATE AMINO TRANSFERASE 35 IU/L (15-46); BILIRUBIN,INDIRECT 0.5 mg/dl (0-1.1); BILIRUBIN,TOTAL 0.5 mg/dl (0.2-1.3); BLOOD UREA NITROGEN 9 mg/dl (7-20); CALCIUM 8.1 mg/dl (8.4-10.2); CARBON DIOXIDE 26 mmol/L (21-31); CHLORIDE 95 mmol/L (97-110); CREATININE 0.55 mg/dl (0.44-1.00); Estimated GFR > 60 mL/min (>60); GLUCOSE 114 mg/dl (70-220); POTASSIUM 5.2 mmol/L (3.5-5.1); SODIUM 125 mmol/L (135-144); TOTAL PROTEIN 6.3 g/dl (6.1-8.1)
[2019-01-22 14:33] LABS: LIPASE < 10 U/L (23-300)
[2019-01-22 14:44] LABS: TROPONIN-I < 0.012 ng/ml (0.000-0.120)
[2019-01-22] MEDS ORDERED: ONDANSETRON 4 MG INJ IV ×2 (16:00→16:30)
[2019-01-22] MEDS ORDERED: ACETAMINOPHEN 325 MG TAB PO (16:00)
[2019-01-22] MEDS ORDERED: ALBUTEROL/IPRATROPIUM (NEB) 3 ML AMP HHN (16:30)
[2019-01-22] MEDS ORDERED: hydrALAzine 20 MG INJ IV (16:30)
[2019-01-22] MEDS ORDERED: DOCUSATE SODIUM 100 MG CAP PO (16:30)
[2019-01-22] MEDS ORDERED: NACL 0.9% 3 ML SYG IV (16:30)
[2019-01-22] MEDS ORDERED: LORAZEPAM 2 MG INJ IV (16:30)
[2019-01-22] MEDS ORDERED: NITROGLYCERIN (SL) 0.4 MG TAB SL (16:30)
[2019-01-22] MEDS: CEFTRIAXONE 1 GM/50 ML (PMX) 50 ML IVPB (16:57)
[2019-01-22] MEDS: SOD CHLORIDE 0.45% 1,000 ML IV (16:57)
[2019-01-22 17:12] LABS: INR 1.18; PROTIME 15.1 Sec (11.9-14.9); PT RATIO 1.2
[2019-01-22 17:13] LABS: PARTIAL THROMBOPLASTIN TIME 32.6 Sec (23.0-35.0)
[2019-01-22 17:28] LABS: FREE T4 (FREE THYROXINE) 1.23 ng/dl (0.78-2.44)
[2019-01-22] MEDS: HYDROmorphONE 4 MG TAB PO (19:36)
[2019-01-23] MEDS: HYDROCODONE/APAP (5/325) TAB PO (01:58)
[2019-01-23] MEDS: SOD CHLORIDE 0.45% 1,000 ML IV ×2 (05:05→19:08)
[2019-01-23] MEDS: PANTOPRAZOLE (EC) 40 MG TAB PO (05:08)
[2019-01-23 05:09] LABS: ADD MAN DIFF? NO
[2019-01-23 05:12] LABS: WHITE BLOOD COUNT 4.9 10^3/ul (4.8-10.8)
[2019-01-23 05:12] LABS: ABNORMAL IP MESSAGE 1; BASOPHILS % 0.4 % (0.0-2.0); EOSINOPHILS # 0.1 10^3/ul (0.0-0.5); EOSINOPHILS % 1.8 % (0.0-7.0); HEMATOCRIT 20.9 % (37.0-47.0); HEMOGLOBIN 7.1 g/dl (12.0-16.0); LYMPHOCYTES # 0.5 10^3/ul (0.8-2.9); LYMPHOCYTES % 10.1 % (15.0-51.0); MEAN CORPUSCULAR HEMOGLOBIN 29.3 pg (29.0-33.0); MEAN CORPUSCULAR VOLUME 86.4 fl (82.0-101.0); MEAN PLATELET VOLUME 9.8 fl (7.4-10.4); MONOCYTE # 0.5 10^3/ul (0.3-0.9); MONOCYTES % 10.1 % (0.0-11.0); NEUTROPHIL # 3.8 10^3/ul (1.6-7.5); PLATELET COUNT 295 10^3/UL (140-415); RED BLOOD COUNT 2.42 10^6/ul (4.20-5.40); RED CELL DISTRIBUTION WIDTH 14.2 % (11.5-14.5)
[2019-01-23 05:20] LABS: POSITIVE DIFF @See below
[2019-01-23 05:25] LABS: HEMOGLOBIN A1C 5.7 % (0-5.9)
[2019-01-23 05:38] LABS: CHOL/HDL RATIO 4.1 RATIO; HDL CHOLESTEROL 31 mg/dl (35-98); LDL CHOLESTEROL,CALCULATED 79 mg/dl; TRIGLYCERIDES 94 mg/dl (0-149)
[2019-01-23 05:38] LABS: CHOLESTEROL 129 mg/dl (100-200)
[2019-01-23 05:39] LABS: ANION GAP 3 (5-13); BLOOD UREA NITROGEN 9 mg/dl (7-20); CALCIUM 8.4 mg/dl (8.4-10.2); CARBON DIOXIDE 25 mmol/L (21-31); CHLORIDE 102 mmol/L (97-110); CREATININE 0.57 mg/dl (0.44-1.00); Estimated GFR > 60 mL/min (>60); GLUCOSE 86 mg/dl (70-220); MAGNESIUM 2.3 mg/dl (1.7-2.5); PHOSPHORUS 3.6 mg/dl (2.5-4.9); POTASSIUM 4.8 mmol/L (3.5-5.1); SODIUM 130 mmol/L (135-144)
[2019-01-23 05:59] LABS: ALANINE AMINOTRANSFERASE 27 IU/L (13-69); ALBUMIN 2.7 g/dl (3.3-4.9); ALKALINE PHOSPHATASE 262 IU/L (42-121); ANION GAP 1 (5-13); ASPARTATE AMINO TRANSFERASE 25 IU/L (15-46); BILIRUBIN,INDIRECT 0.5 mg/dl (0-1.1); BILIRUBIN,TOTAL 0.5 mg/dl (0.2-1.3); BLOOD UREA NITROGEN 9 mg/dl (7-20); CALCIUM 8.4 mg/dl (8.4-10.2); CARBON DIOXIDE 27 mmol/L (21-31); CHLORIDE 102 mmol/L (97-110); CREATININE 0.57 mg/dl (0.44-1.00); Estimated GFR > 60 mL/min (>60); GLUCOSE 88 mg/dl (70-220); POTASSIUM 4.6 mmol/L (3.5-5.1); SODIUM 130 mmol/L (135-144); TOTAL PROTEIN 5.7 g/dl (6.1-8.1)
[2019-01-23] MEDS: morphine 2 MG INJ IV ×3 (07:29→17:37)
[2019-01-23] MEDS: IOHEXOL 300MG/ML 30 ML BTL (09:13)
[2019-01-23] MEDS: SOD CHLORIDE 0.9% 500 ML ×2 (09:13→10:18)
[2019-01-23] MEDS: LIDOCAINE 1% (MPF) 5 ML VIAL (09:13)
[2019-01-23] MEDS: HYDROmorphONE 4 MG TAB PO ×3 (09:29→22:05)
[2019-01-23] MEDS: FENTAnyl 50 MCG/ML VIAL (10:19)
[2019-01-23] MEDS: MIDAZOLAM 1 MG/ML 2 ML INJ (10:19)
[2019-01-23] MEDS: SOD CHLORIDE 0.9% 250 ML IV* (11:23)
[2019-01-23 15:14] LABS: IMMEDIATE SPIN CROSSMATCH 1 1
[2019-01-23] MEDS: ACETAMINOPHEN 325 MG TAB PO (15:56)
[2019-01-23] MEDS: CEFTRIAXONE 1 GM/50 ML (PMX) 50 ML IVPB (19:08)
[2019-01-24 04:58] LABS: ADD MAN DIFF? NO
[2019-01-24 05:02] LABS: ABNORMAL IP MESSAGE 1; BASOPHILS % 0.3 % (0.0-2.0); EOSINOPHILS # 0.1 10^3/ul (0.0-0.5); EOSINOPHILS % 1.4 % (0.0-7.0); HEMATOCRIT 24.5 % (37.0-47.0); HEMOGLOBIN 8.1 g/dl (12.0-16.0); LYMPHOCYTES # 0.4 10^3/ul (0.8-2.9); LYMPHOCYTES % 7.5 % (15.0-51.0); MEAN CORPUSCULAR HEMOGLOBIN 28.5 pg (29.0-33.0); MEAN CORPUSCULAR HGB CONC 33.1 g/dl (32.0-37.0); MEAN CORPUSCULAR VOLUME 86.3 fl (82.0-101.0); MEAN PLATELET VOLUME 9.5 fl (7.4-10.4); MONOCYTE # 0.5 10^3/ul (0.3-0.9); MONOCYTES % 8.7 % (0.0-11.0); NEUTROPHIL # 4.7 10^3/ul (1.6-7.5); NEUTROPHILS % 81.6 % (39.0-77.0); PLATELET COUNT 270 10^3/UL (140-415); RED BLOOD COUNT 2.84 10^6/ul (4.20-5.40); RED CELL DISTRIBUTION WIDTH 14.9 % (11.5-14.5)
[2019-01-24 05:02] LABS: WHITE BLOOD COUNT 5.8 10^3/ul (4.8-10.8)
[2019-01-24 05:26] LABS: ANION GAP 4 (5-13); BLOOD UREA NITROGEN 8 mg/dl (7-20); CALCIUM 8.4 mg/dl (8.4-10.2); CARBON DIOXIDE 24 mmol/L (21-31); CHLORIDE 101 mmol/L (97-110); CREATININE 0.73 mg/dl (0.44-1.00); Estimated GFR > 60 mL/min (>60); GLUCOSE 95 mg/dl (70-220); POTASSIUM 4.4 mmol/L (3.5-5.1); SODIUM 129 mmol/L (135-144)
[2019-01-24 05:28] LABS: POSITIVE DIFF @See below
[2019-01-24] MEDS: PANTOPRAZOLE (EC) 40 MG TAB PO (05:41)
[2019-01-24] MEDS: HYDROmorphONE 4 MG TAB PO ×2 (05:41→13:23)
[2019-01-24] MEDS: MAGNESIUM HYDROXIDE 30ML CUP PO (05:41)
[2019-01-24] MEDS: SOD CHLORIDE 0.45% 1,000 ML IV (10:00)
== END 2019-01-24 16:30 | disposition hospice, home (50) | DRG 908 ==
LOC: E/R 11:40 → MS1 15:45
PROC: 0FPB30Z Removal of Drainage Device from Hepatobiliary Duct, Percutaneous Approach (ICD-10-PCS; principal; 2019-01-23)
PROC: 0F9930Z Drainage of Common Bile Duct with Drainage Device, Percutaneous Approach (ICD-10-PCS; 2019-01-23)
PROC: 30233N1 Transfusion of Nonautologous Red Blood Cells into Peripheral Vein, Percutaneous Approach (ICD-10-PCS; 2019-01-23)
DX: T85.520A Displacement of bile duct prosthesis, initial encounter (principal); E87.1 Hypo-osmolality and hyponatremia; E44.0 Moderate protein-calorie malnutrition; C22.1 Intrahepatic bile duct carcinoma; Z68.1 Body mass index [BMI] 19.9 or less, adult; D64.9 Anemia, unspecified; Y83.9 Surgical procedure, unspecified as the cause of abnormal reaction of the patient, or of later complication, without mention of misadventure at the time of the procedure; Z87.11 Personal history of peptic ulcer disease; Z90.49 Acquired absence of other specified parts of digestive tract
CPT/HCPCS: 36415; 36430; 47525; 71045; 74176; 80048; 80053; 80061; 83036; 83690; 83735; 84100; 84439; 84443; 84484; 85025; 85610; 85730; 86850; 86900; 86901; 86920; 96374; 96375; 97161; 99285-25

== ENCOUNTER 2019-03-06 18:51 | Inpatient (IN) | payer OTHER ==
[2019-03-06] MEDS: ONDANSETRON 4 MG INJ IV (19:29)
[2019-03-06] MEDS: SOD CHLORIDE 0.9% 500 ML IV (19:29)
[2019-03-06] MEDS: morphine 2 MG INJ IV (19:29)
[2019-03-06 19:34] LABS: ADD MAN DIFF? NO
[2019-03-06 19:36] LABS: WHITE BLOOD COUNT 5.9 10^3/ul (4.8-10.8)
[2019-03-06 19:36] LABS: ABNORMAL IP MESSAGE 1; BASOPHILS % 0.3 % (0.0-2.0); EOSINOPHILS % 0.3 % (0.0-7.0); HEMATOCRIT 21.6 % (37.0-47.0); HEMOGLOBIN 7.5 g/dl (12.0-16.0); LYMPHOCYTES # 0.6 10^3/ul (0.8-2.9); LYMPHOCYTES % 9.4 % (15.0-51.0); MEAN CORPUSCULAR HEMOGLOBIN 28.2 pg (29.0-33.0); MEAN CORPUSCULAR HGB CONC 34.7 g/dl (32.0-37.0); MEAN CORPUSCULAR VOLUME 81.2 fl (82.0-101.0); MEAN PLATELET VOLUME 9.2 fl (7.4-10.4); MONOCYTE # 0.5 10^3/ul (0.3-0.9); MONOCYTES % 8.8 % (0.0-11.0); NEUTROPHIL # 4.8 10^3/ul (1.6-7.5); PLATELET COUNT 452 10^3/UL (140-415); RED BLOOD COUNT 2.66 10^6/ul (4.20-5.40); RED CELL DISTRIBUTION WIDTH 14.7 % (11.5-14.5)
[2019-03-06 19:39] LABS: ADD UMIC NO; UR ASCORBIC ACID 40 mg/dL (NEGATIVE); UR BILIRUBIN (Dip) NEGATIVE (NEGATIVE); UR BLOOD (Dip) NEGATIVE (NEGATIVE); UR CLARITY CLEAR (CLEAR); UR COLOR YELLOW (YELLOW); UR GLUCOSE (Dip) NEGATIVE (NEGATIVE); UR KETONES (Dip) TRACE mg/dL (NEGATIVE); UR LEUKOCYTE ESTERASE (Dip) NEGATIVE Leu/ul (NEGATIVE); UR NITRITE (Dip) NEGATIVE (NEGATIVE); UR SPECIFIC GRAVITY (Dip) 1.018 (1.003-1.030); UR TOTAL PROTEIN (Dip) NEGATIVE (NEGATIVE); UR UROBILINOGEN (Dip) NEGATIVE (NEGATIVE)
[2019-03-06 19:52] LABS: POSITIVE DIFF @See below
[2019-03-06 19:55] LABS: ALANINE AMINOTRANSFERASE 34 IU/L (13-69); ALBUMIN 3.6 g/dl (3.3-4.9); ALBUMIN/GLOBULIN RATIO 1.05; ALKALINE PHOSPHATASE 136 IU/L (42-121); ANION GAP 10 (5-13); ASPARTATE AMINO TRANSFERASE 37 IU/L (15-46); BILIRUBIN,INDIRECT 0.4 mg/dl (0-1.1); BILIRUBIN,TOTAL 0.4 mg/dl (0.2-1.3); BLOOD UREA NITROGEN 15 mg/dl (7-20); CALCIUM 8.9 mg/dl (8.4-10.2); CARBON DIOXIDE 30 mmol/L (21-31); CHLORIDE 83 mmol/L (97-110); CREATININE 0.61 mg/dl (0.44-1.00); Estimated GFR > 60 mL/min (>60); GLUCOSE 107 mg/dl (70-220); LIPASE < 10 U/L (23-300); SODIUM 123 mmol/L (135-144)
[2019-03-06 19:56] LABS: INR 1.12; PROTIME 14.5 Sec (11.9-14.9); PT RATIO 1.1
[2019-03-06 19:57] LABS: PARTIAL THROMBOPLASTIN TIME 26.4 Sec (23.0-35.0)
[2019-03-06] MEDS: SOD CHLORIDE 0.9% 100 ML (20:15)
[2019-03-06] MEDS: IOHEXOL 300MG/ML 150 ML BTL (20:15)
[2019-03-07] MEDS ORDERED: ACETAMINOPHEN 325 MG TAB PO
[2019-03-07] MEDS: SOD CHLORIDE 0.9% 1,000 ML IV ×3 (02:15→14:34)
[2019-03-07] MEDS ORDERED: ONDANSETRON 4 MG INJ IV ×2 (03:00)
[2019-03-07] MEDS ORDERED: HYDROmorphONE 1 MG/ML SYG IV (03:00)
[2019-03-07] MEDS ORDERED: NACL 0.9% 3 ML SYG IV (03:00)
[2019-03-07] MEDS ORDERED: ALBUTEROL/IPRATROPIUM (NEB) 3 ML AMP HHN (03:00)
[2019-03-07] MEDS ORDERED: ACETAMINOPHEN 650 MG SUPP PR (03:00)
[2019-03-07] MEDS: FENTAnyl 50 MCG/ML VIAL IV (03:14)
[2019-03-07 05:36] LABS: ADD MAN DIFF? NO
[2019-03-07 05:41] LABS: WHITE BLOOD COUNT 3.7 10^3/ul (4.8-10.8)
[2019-03-07 05:41] LABS: ABNORMAL IP MESSAGE 1; BASOPHILS % 0.5 % (0.0-2.0); EOSINOPHILS % 0.5 % (0.0-7.0); HEMATOCRIT 19.3 % (37.0-47.0); LYMPHOCYTES # 0.4 10^3/ul (0.8-2.9); LYMPHOCYTES % 10.5 % (15.0-51.0); MEAN CORPUSCULAR HGB CONC 33.7 g/dl (32.0-37.0); MEAN CORPUSCULAR VOLUME 83.2 fl (82.0-101.0); MEAN PLATELET VOLUME 8.8 fl (7.4-10.4); MONOCYTE # 0.5 10^3/ul (0.3-0.9); MONOCYTES % 12.4 % (0.0-11.0); NEUTROPHIL # 2.8 10^3/ul (1.6-7.5); NEUTROPHILS % 75.8 % (39.0-77.0); PLATELET COUNT 294 10^3/UL (140-415); RED BLOOD COUNT 2.32 10^6/ul (4.20-5.40); RED CELL DISTRIBUTION WIDTH 14.9 % (11.5-14.5)
[2019-03-07 05:44] LABS: HEMOGLOBIN 6.5 g/dl (12.0-16.0); POSITIVE DIFF @See below
[2019-03-07 05:59] LABS: ALANINE AMINOTRANSFERASE 29 IU/L (13-69); ALBUMIN 2.8 g/dl (3.3-4.9); ALBUMIN/GLOBULIN RATIO 0.96; ALKALINE PHOSPHATASE 96 IU/L (42-121); ANION GAP 6 (5-13); ASPARTATE AMINO TRANSFERASE 25 IU/L (15-46); BILIRUBIN,INDIRECT 0.3 mg/dl (0-1.1); BILIRUBIN,TOTAL 0.3 mg/dl (0.2-1.3); BLOOD UREA NITROGEN 10 mg/dl (7-20); CALCIUM 8.2 mg/dl (8.4-10.2); CARBON DIOXIDE 27 mmol/L (21-31); CHLORIDE 95 mmol/L (97-110); CREATININE 0.51 mg/dl (0.44-1.00); Estimated GFR > 60 mL/min (>60); GLUCOSE 116 mg/dl (70-220); MAGNESIUM 2.3 mg/dl (1.7-2.5); POTASSIUM 3.6 mmol/L (3.5-5.1); SODIUM 128 mmol/L (135-144); TOTAL PROTEIN 5.7 g/dl (6.1-8.1)
[2019-03-07 07:12] LABS: OSMOLALITY 260 mOsm/kg (280-295)
[2019-03-07 07:13] LABS: POTASSIUM,URINE RANDOM 89.9 mmol/L (25-125)
[2019-03-07 07:23] LABS: SODIUM,URINE RANDOM < 13 mmol/L (30-90)
[2019-03-07 07:51] LABS: OSMOLALITY,URINE 498 mOsm/kg (250-1200)
[2019-03-07] MEDS: morphine 2 MG INJ IV ×4 (08:05→21:41)
[2019-03-07 08:06] LABS: ANISOCYTOSIS 1+ (0-0); BAND NEUTROPHILS #M 0.1 10^3/ul (0.0-0.6); BAND NEUTROPHILS % (M) 3 % (0-4); BASOPHILS % (M) 2 % (0-2); BURR CELLS 1+ (0-0); EOSINOPHILS % (M) 1 % (0-7); GIANT THROMBO% (M) 1 % (0-0); LYMPHOCYTES #M 0.3 10^3/ul (0.8-2.9); LYMPHOCYTES % (M) 9 % (15-51); MONOCYTE #M 0.1 10^3/ul (0.3-0.9); MONOCYTES % (M) 5 % (0-11); PLATELET ESTIMATE NORMAL; POIKILOCYTOSIS 1+ (0-0); POLYCHROMASIA 1+ (0-0); SEGMENTED NEUTROPHILS (M) % 81 % (39-77); SMUDGE%M 29 % (0-0)
[2019-03-07] MEDS: FAMOTIDINE 20 MG INJ IV ×2 (08:41→20:40)
[2019-03-07 12:22] LABS: ANION GAP 6 (5-13); BLOOD UREA NITROGEN 8 mg/dl (7-20); CALCIUM 8.4 mg/dl (8.4-10.2); CARBON DIOXIDE 24 mmol/L (21-31); CHLORIDE 99 mmol/L (97-110); CREATININE 0.44 mg/dl (0.44-1.00); Estimated GFR > 60 mL/min (>60); GLUCOSE 100 mg/dl (70-220); POTASSIUM 3.7 mmol/L (3.5-5.1); SODIUM 129 mmol/L (135-144)
[2019-03-07] MEDS: METHADONE (1 MG/ML 5 ML PO UD SYG) PO ×3 (13:07→20:42)
[2019-03-07 16:10] LABS: IMMEDIATE SPIN CROSSMATCH 1 2
[2019-03-08] MEDS: METHADONE (1 MG/ML 5 ML PO UD SYG) PO ×4 (01:07→14:05)
[2019-03-08] MEDS: morphine 2 MG INJ IV ×4 (02:17→12:07)
[2019-03-08 06:35] LABS: ADD MAN DIFF? NO
[2019-03-08 06:43] LABS: WHITE BLOOD COUNT 4.7 10^3/ul (4.8-10.8)
[2019-03-08 06:43] LABS: ABNORMAL IP MESSAGE 1; BASOPHILS % 0.6 % (0.0-2.0); EOSINOPHILS % 0.6 % (0.0-7.0); HEMATOCRIT 26.8 % (37.0-47.0); HEMOGLOBIN 9.7 g/dl (12.0-16.0); LYMPHOCYTES # 0.4 10^3/ul (0.8-2.9); LYMPHOCYTES % 9.4 % (15.0-51.0); MEAN CORPUSCULAR HEMOGLOBIN 29.9 pg (29.0-33.0); MEAN CORPUSCULAR HGB CONC 36.2 g/dl (32.0-37.0); MEAN CORPUSCULAR VOLUME 82.7 fl (82.0-101.0); MEAN PLATELET VOLUME 8.9 fl (7.4-10.4); MONOCYTE # 0.4 10^3/ul (0.3-0.9); MONOCYTES % 9.2 % (0.0-11.0); NEUTROPHIL # 3.7 10^3/ul (1.6-7.5); NEUTROPHILS % 79.8 % (39.0-77.0); PLATELET COUNT 291 10^3/UL (140-415); RED BLOOD COUNT 3.24 10^6/ul (4.20-5.40); RED CELL DISTRIBUTION WIDTH 13.9 % (11.5-14.5)
[2019-03-08 07:04] LABS: POSITIVE DIFF @See below
[2019-03-08 07:27] LABS: ANION GAP 5 (5-13); BLOOD UREA NITROGEN 7 mg/dl (7-20); CALCIUM 8.6 mg/dl (8.4-10.2); CARBON DIOXIDE 22 mmol/L (21-31); CHLORIDE 104 mmol/L (97-110); CREATININE 0.43 mg/dl (0.44-1.00); Estimated GFR > 60 mL/min (>60); GLUCOSE 101 mg/dl (70-220); MAGNESIUM 2.2 mg/dl (1.7-2.5); PHOSPHORUS 2.7 mg/dl (2.5-4.9); POTASSIUM 3.7 mmol/L (3.5-5.1); SODIUM 131 mmol/L (135-144)
[2019-03-08] MEDS: FAMOTIDINE 20 MG INJ IV (09:02)
[2019-03-08] MEDS: SOD CHLORIDE 0.9% 1,000 ML IV (11:17)
[2019-03-08] MEDS ORDERED: DOCUSATE SODIUM 100 MG CAP PO (21:00)
== END 2019-03-08 16:11 | disposition hospice, home (50) | DRG 435 ==
LOC: E/R 18:51 → TEL 23:32
PROVIDERS: Internal Medicine; Pediatrics
PROC: 30233N1 Transfusion of Nonautologous Red Blood Cells into Peripheral Vein, Percutaneous Approach (ICD-10-PCS; principal; 2019-03-07)
DX: C25.9 Malignant neoplasm of pancreas, unspecified (principal); I81 Portal vein thrombosis; K55.029 Acute infarction of small intestine, extent unspecified; E87.1 Hypo-osmolality and hyponatremia; C78.7 Secondary malignant neoplasm of liver and intrahepatic bile duct; C78.89 Secondary malignant neoplasm of other digestive organs; C78.02 Secondary malignant neoplasm of left lung; C78.01 Secondary malignant neoplasm of right lung; I82.890 Acute embolism and thrombosis of other specified veins; K56.690 Other partial intestinal obstruction; D64.9 Anemia, unspecified; E86.0 Dehydration; K26.9 Duodenal ulcer, unspecified as acute or chronic, without hemorrhage or perforation
CPT/HCPCS: 36415; 36430; 74177; 80048; 80053; 81003; 82436; 83690; 83735; 83930; 83935; 84100; 84133; 84300; 85025; 85610; 85730; 86644; 86850; 86900; 86901; 86920; 86945; 93005; 96374; 96375; 99285-25